=== PATIENT | female | born 1955 | race Caucasian/White ===

== ENCOUNTER 2017-01-09 09:06 | Emergency (ER) | payer BC ==
[2017-01-09] MEDS ORDERED: SODIUM CHLORIDE 0.9% 1,000 ML IV STA (09:32)
[2017-01-09] MEDS ORDERED: ONDANSETRON 4 MG/2 ML VIAL IVP STA (09:33)
--- NOTE | 2017-01-09 09:47 | ED ---
General Adult HPI - General Chief complaint: Syncope Stated complaint: Vomiting/Syncope Time Seen by Provider: 01/09/17 09:23 Source: patient, RN notes reviewed Mode of arrival: wheelchair Limitations: physical limitation - History of Present Illness Initial comments: This a 61-year-old female presents emergency Department with multiple complaints. Patient states she's been sick since Sunday states that she's had some cough congestion nausea vomiting diarrhea. Patient states went to urgent care told that she has sinus infection and some other type infection. She states she was given Cipro, prednisone and culture. Patient states symptoms are not improving. States it airbags to making her diarrhea worse. She states that she has 3-4 episodes of vomiting diarrhea throughout the day. She states today she was getting out of the shower felt very dizzy hot flush and states that she passed out. She states she remembers starting to fall and then she states she woke up on the ground. Patient states that she has no head or neck pain she states that she denies any chest pain or shortness breath at this time. She does complain of left leg and ankle pain. Patient states that she cannot bear weight because of pain. Patient denies any abdominal pain time she does occasionally have some cramping associated with her diarrhea. Denies any melena, hematochezia, hematemesis or coffee-ground emesis. - Related Data Home Medications Medication Instructions Recorded Confirmed Ciprofloxacin HCl [Cipro] 500 mg PO Q12HR 01/09/17 01/09/17 Levothyroxine Sodium [Synthroid] 125 mcg PO DAILY 01/09/17 01/09/17 predniSONE 10 mg PO DAILY 01/09/17 01/09/17 Previous Rx's Medication Instructions Recorded Ondansetron Odt [Zofran Odt] 4 mg PO Q8HR PRN #10 tab 01/09/17 Allergies Allergy/AdvReac Type Severity Reaction Status Date / Time Penicillins Allergy Anaphylaxis Verified 01/09/17 09:33 Review of Systems ROS Statement: Those systems with pertinent positive or pertinent negative responses have been documented in the HPI. ROS Other: All systems not noted in ROS Statement are negative. Past Medical History Past Medical History: Asthma Additional Past Medical History / Comment(s): THYROID History of Any Multi-Drug Resistant Organisms: None Reported Past Surgical History: Appendectomy, Hysterectomy Additional Past Surgical History / Comment(s): HAND SX X 2 Past Psychological History: No Psychological Hx Reported Smoking Status: Former smoker Past Alcohol Use History: None Reported Past Drug Use History: None Reported General Exam Limitations: physical limitation General appearance: alert, in no apparent distress Head exam: Present: atraumatic, normocephalic, normal inspection Eye exam: Present: normal appearance, PERRL, EOMI. Absent: scleral icterus, conjunctival injection, periorbital swelling ENT exam: Present: normal exam, normal oropharynx, mucous membranes moist, TM's normal bilaterally, normal external ear exam Neck exam: Present: normal inspection, full ROM. Absent: tenderness, meningismus, lymphadenopathy Respiratory exam: Present: normal lung sounds bilaterally. Absent: respiratory distress, wheezes, rales, rhonchi, stridor Cardiovascular Exam: Present: regular rate, normal rhythm, normal heart sounds. Absent: systolic murmur, diastolic murmur, rubs, gallop, clicks GI/Abdominal exam: Present: soft, normal bowel sounds. Absent: distended, tenderness, guarding, rebound, rigid Extremities exam: Present: other (Tenderness over the proximal tib-fib region on the left, tenderness the lateral malleolus of left ankle, mild swelling, neurovascular intact there is no foot tenderness) Back exam: Present: full ROM. Absent: tenderness Neurological exam: Present: alert, oriented X3, CN II-XII intact, reflexes normal. Absent: motor sensory deficit Skin exam: Present: warm, dry, intact, normal color. Absent: rash Course Vital Signs 01/09/17 01/09/17 09:14 10:40 Temperature 98.8 F Pulse Rate 101 H 71 Respiratory 20 18 Rate Blood Pressure 155/85 141/76 O2 Sat by Pulse 100 98 Oximetry EKG Findings - EKG Comments: EKG Findings:: EKG performed at 9:43 sinus rhythm with short ND rate of 83 ND interval 110 QRS duration 86 QT/ QTC 370/434 Procedures - Orthopedic Splinting/Casting Injury #1 Lower Extremity Injury Location: long leg Lower Extremity Immobilizer: posterior splint, synthetic pre-padded splint Other Orthopedic Equipment: crutches Medical Decision Making - Medical Decision Making 61-year-old female presented from for nausea vomiting diarrhea cough congestion not feeling well. Patient has been sick last few days. Patient's labwork essentially unremarkable. Patient didn't have syncopal episode from getting out of the shower likely vasovagal. Patient has no specific complaints other than left ankle and leg pain. Patient has a fibular fracture. Patient will be splinted and follow up with orthopedics. Patient denies medication advised to increase her fluid intake and follow-up with her PCP. Return parameters were discussed. - Lab Data Result diagrams: 01/09/17 10:00 01/09/17 10:00 Lab Results 01/09/17 01/09/17 01/09/17 Range/Units 10:00 10:00 10:00 WBC 5.8 (3.8-10.6) k/uL RBC 5.13 (3.80-5.40) m/uL Hgb 15.7 (11.4-16.0) gm/dL Hct 46.6 H (34.0-46.0) % MCV 90.8 (80.0-100.0) fL MCH 30.7 (25.0-35.0) pg MCHC 33.8 (31.0-37.0) g/dL RDW 13.1 (11.5-15.5) % Plt Count 208 (150-450) k/uL Neutrophils % 65 % Lymphocytes % 24 % Monocytes % 8 % Eosinophils % 1 % Basophils % 1 % Neutrophils # 3.7 (1.3-7.7) k/uL Lymphocytes # 1.4 (1.0-4.8) k/uL Monocytes # 0.4 (0-1.0) k/uL Eosinophils # 0.0 (0-0.7) k/uL Basophils # 0.0 (0-0.2) k/uL PT (9.0-12.0) sec INR (<1.2) APTT (22.0-30.0) sec Sodium 139 (137-145) mmol/L Potassium 3.9 (3.5-5.1) mmol/L Chloride 107 (98-107) mmol/L Carbon Dioxide 21 L (22-30) mmol/L Anion Gap 11 mmol/L BUN 13 (7-17) mg/dL Creatinine 0.72 (0.52-1.04) mg/dL Est GFR (MDRD) Af Amer >60 (>60 ml/min/1.73 sqM) Est GFR (MDRD) Non-Af >60 (>60 ml/min/1.73 sqM) Glucose 123 H (74-99) mg/dL Calcium 9.1 (8.4-10.2) mg/dL Magnesium 1.8 (1.6-2.3) mg/dL Total Bilirubin 0.4 (0.2-1.3) mg/dL AST 41 H (14-36) U/L ALT 48 (9-52) U/L Alkaline Phosphatase 61 (38-126) U/L Total Creatine Kinase 103 (30-135) U/L CK-MB (CK-2) 1.1 (0.0-2.4) ng/mL CK-MB (CK-2) Rel Index 1.1 Troponin I <0.012 (0.000-0.034) ng/mL Total Protein 7.0 (6.3-8.2) g/dL Albumin 4.2 (3.5-5.0) g/dL Amylase 93 (30-110) U/L Lipase 357 H (23-300) U/L Urine Color Urine Appearance (Clear) Urine pH (5.0-8.0) Ur Specific Morrow (1.001-1.035) Urine Protein (Negative) Urine Glucose (UA) (Negative) Urine Ketones (Negative) Urine Blood (Negative) Urine Nitrite (Negative) Urine Bilirubin (Negative) Urine Urobilinogen (<2.0) mg/dL Ur Leukocyte Esterase (Negative) Ur Squamous Epith Cells (0-4) /hpf Urine Bacteria (None) /hpf Urine Mucus (None) /hpf 01/09/17 01/09/17 Range/Units 10:00 10:15 WBC (3.8-10.6) k/uL RBC (3.80-5.40) m/uL Hgb (11.4-16.0) gm/dL Hct (34.0-46.0) % MCV (80.0-100.0) fL MCH (25.0-35.0) pg MCHC (31.0-37.0) g/dL RDW (11.5-15.5) % Plt Count (150-450) k/uL Neutrophils % % Lymphocytes % % Monocytes % % Eosinophils % % Basophils % % Neutrophils # (1.3-7.7) k/uL Lymphocytes # (1.0-4.8) k/uL Monocytes # (0-1.0) k/uL Eosinophils # (0-0.7) k/uL Basophils # (0-0.2) k/uL PT 10.7 (9.0-12.0) sec INR 1.1 (<1.2) APTT 24.8 (22.0-30.0) sec Sodium (137-145) mmol/L Potassium (3.5-5.1) mmol/L Chloride (98-107) mmol/L Carbon Dioxide (22-30) mmol/L Anion Gap mmol/L BUN (7-17) mg/dL Creatinine (0.52-1.04) mg/dL Est GFR (MDRD) Af Amer (>60 ml/min/1.73 sqM) Est GFR (MDRD) Non-Af (>60 ml/min/1.73 sqM) Glucose (74-99) mg/dL Calcium (8.4-10.2) mg/dL Magnesium (1.6-2.3) mg/dL Total Bilirubin (0.2-1.3) mg/dL AST (14-36) U/L ALT (9-52) U/L Alkaline Phosphatase (38-126) U/L Total Creatine Kinase (30-135) U/L CK-MB (CK-2) (0.0-2.4) ng/mL CK-MB (CK-2) Rel Index Troponin I (0.000-0.034) ng/mL Total Protein (6.3-8.2) g/dL Albumin (3.5-5.0) g/dL Amylase (30-110) U/L Lipase (23-300) U/L Urine Color Yellow Urine Appearance Cloudy H (Clear) Urine pH 6.5 (5.0-8.0) Ur Specific Morrow 1.020 (1.001-1.035) Urine Protein 1+ H (Negative) Urine Glucose (UA) Negative (Negative) Urine Ketones Negative (Negative) Urine Blood Negative (Negative) Urine Nitrite Negative (Negative) Urine Bilirubin Negative (Negative) Urine Urobilinogen <2.0 (<2.0) mg/dL Ur Leukocyte Esterase Negative (Negative) Ur Squamous Epith Cells 5 H (0-4) /hpf Urine Bacteria Rare H (None) /hpf Urine Mucus Rare H (None) /hpf Disposition Clinical Impression: Left fibular fracture, Vasovagal syncope, Nausea vomiting and diarrhea, URI ( upper respiratory infection) Disposition: HOME SELF-CARE Condition: Stable Instructions: Acute Nausea and Vomiting (ED), Acute Diarrhea (ED) Additional Instructions: Please return to the Emergency Department if symptoms worsen or any other concerns. Prescriptions: Ondansetron Odt [Zofran Odt] 4 mg PO Q8HR PRN #10 tab PRN Reason: Nausea Referrals: Rios Arnold MD [Primary Care Provider] - 1-2 days Junior Medellin MD [STAFF PHYSICIAN] - 1-2 days Time of Disposition: 11:22
[2017-01-09 10:22] LABS: Basophils % (A) 1 %; CH 31.7; CHCM 35.1; Eosinophils % (A) 1 %; HCT 46.6 % (34.0-46.0); HDW 2.34; HGB 15.7 gm/dL (11.4-16.0); Luc # (Auto) 0.16; Luc % (Auto) 3; Lymphocytes # (A) 1.4 k/uL (1.0-4.8); Lymphocytes % (A) 24 %; MCH 30.7 pg (25.0-35.0); MCHC 33.8 g/dL (31.0-37.0); MCV 90.8 fL (80.0-100.0); Mean Platelet Volume 7.4; Monocytes # (A) 0.4 k/uL (0-1.0); Monocytes % (A) 8 %; Neutrophils # (A) 3.7 k/uL (1.3-7.7); Neutrophils % (A) 65 %; RBC 5.13 m/uL (3.80-5.40); RDW 13.1 % (11.5-15.5); WBC 5.8 k/uL (3.8-10.6); WBC (Perox) 5.39
[2017-01-09 10:23] LABS: Appearance,Urine Cloudy (Clear); Bacteria,Urine Rare /hpf; Bilirubin,Urine Negative (Negative); Glucose,Urine (UA) Negative (Negative); Ketones,Urine Negative (Negative); Leukocyte Esterase,Urine Negative (Negative); Mucus,Urine Rare /hpf; Nitrite,Urine Negative (Negative); PH, Urine 6.5 (5.0-8.0); Particle Count 4950; Protein,Urine 1+ (Negative); Squamous Epithelial Cell,Urine 5 /hpf (0-4); UA Billing (MACRO vs. MICRO) MICRO; Urobilinogen,Urine <2.0 mg/dL (<2.0)
[2017-01-09 10:25] LABS: INR 1.1 (<1.2); Prothrombin Time 10.7 sec (9.0-12.0)
[2017-01-09 10:26] LABS: ALT 48 U/L (9-52); AST 41 U/L (14-36); Alkaline Phosphatase 61 U/L (38-126); Amylase 93 U/L (30-110); Anion Gap 11 mmol/L; Blood Urea Nitrogen 13 mg/dL (7-17); Calcium 9.1 mg/dL (8.4-10.2); Carbon Dioxide 21 mmol/L (22-30); Chloride 107 mmol/L (98-107); Glucose 123 mg/dL (74-99); Magnesium 1.8 mg/dL (1.6-2.3); Non-African American GFR(MDRD) >60 (>60 ml/min/1.73 sqM); Partial Thromboplastin Time 24.8 sec (22.0-30.0); Potassium 3.9 mmol/L (3.5-5.1); Sodium 139 mmol/L (137-145); Total Bilirubin 0.4 mg/dL (0.2-1.3)
--- NOTE | 2017-01-09 10:37 | XR ---
EXAMINATION TYPE: XR chest 2V, XR tibia fibula 2 views LT, XR ankle complete 3 views LT DATE OF EXAM: 01/09/2017 COMPARISON: None HISTORY: 61-year-old female with syncope and unable to bear weight on the left leg FINDINGS: CHEST: The cardiomediastinal silhouette, aorta, and pulmonary vasculature are within normal limits. Lungs an d pleural spaces are clear. TIBIA/FIBULA AND ANKLE: Sagittal lucency seen along the medial cortex of the fibular neck only on the frontal view. Otherwise , no acute fracture or dislocation is seen. Ankle mortise appears congruent with preservation of the distal tibiofibular overlap. Anterior tibiotalar joint effusion is noted. COMBINED IMPRESSION: 1. Chest: No acute cardiopulmonary process. 2. Tibia/fibula: Unable to exclude a subtle nondisplaced fracture of the fibular neck. Correlate as t o the mechanism of injury i.e. direct impact to the proximal leg or twisting injury at the ankle. 3. Ankle: Joint effusion but without acute osseous abnormality seen. Again, correlate as to the mecha nism of injury to exclude the possibility of underlying ligamentous injury.
[2017-01-09 10:41] VITALS: RESP 18
[2017-01-09 10:58] LABS: Creatine Kinase 103 U/L (30-135)
[2017-01-09 11:09] LABS: Creatine Kinase MB 1.1 ng/mL (0.0-2.4); Troponin I <0.012 ng/mL (0.000-0.034)
[2017-01-09 12:08] VITALS: BP 130/83; PULSE 77; TEMP 98.9
== END 2017-01-09 12:08 | disposition home or self-care (01) ==
LOC: EC 09:06
DX: S82.402A Unspecified fracture of shaft of left fibula, initial encounter for closed fracture (principal); R55 Syncope and collapse; R11.2 Nausea with vomiting, unspecified; R19.7 Diarrhea, unspecified; J06.9 Acute upper respiratory infection, unspecified; Z87.891 Personal history of nicotine dependence; Z79.52 Long term (current) use of systemic steroids; Z79.899 Other long term (current) drug therapy; Z88.0 Allergy status to penicillin; Z90.710 Acquired absence of both cervix and uterus; W19.XXXA Unspecified fall, initial encounter
CPT/HCPCS: 36415; 93005; 80053; 82150; 82550; 82553; 83690; 83735; 84484; 85025; 85610; 85730; 81001; 71020; 73590; 73610; 99284; 29505; 96374; 96361 ×2; J2405

== ENCOUNTER → 2017-09-18 | Outpatient (CLI) | payer BC ==
--- NOTE | 2017-09-18 17:19 | BD ---
EXAMINATION TYPE: Axial Bone Density DATE OF EXAM: 09/18/2017 COMPARISON: NONE CLINICAL HISTORY: 61 YR OLD FEMALE.....ICD-10 CODE: Z78.0 ASYMPTOMATIC MENOPAUSAL STATE Height: 60.2 Weight: 137 FRAX RISK QUESTIONS: History of Fracture in Adulthood: YES Secondary Osteoporosis: YES 3. Menopause before 45: YES RISK FACTORS HISTORY OF: HX OF TIB FIB BREAK LAST YR AND PRIOR 5 YRS History of Wrist Fracture: LT WRIST YOUNG ADULT Active: YES Diet low in dairy products/other sources of calcium: NO Postmenopausal woman: PARTIAL HYST AT AGE 39 MEDICATIONS: Prednisone or other steroids: ON AND OFF FOR URI Thyroid Medications: YES, SYNTHROID, SINCE AGE 34 Additional Medications: CALCIUM AND VIT D, Additional History: NOTHING TO NOTE EXAM MEASUREMENTS: Bone mineral densitometry was performed using the [employer] System. Bone mineral density as measured about the Lumbar spine is: ----- L1-L4(G/cm2): 1.077 T Score Values are as follows: ----- L1: -1.3 ----- L2: -0.9 ----- L3: -0.9 ----- L4: -1.2 ----- L1-L4: -1.0 Bone mineral density FIRST BONE DENSITY TEST.....BASELINE STUDY Bone mineral density about the R hip (g/cm2): 0.916 Bone mineral density about the L hip (g/cm2): 0.916 T Score values are as follows: -----R Neck: -1.3 -----L Neck: -1.4 -----R Total: -0.7 -----L Total: -0.7 Bone mineral density BASELINE STUDY FRAX%s: THERE IS 13.4% CHANCE OF A MAJOR OSTEOPOROTIC FX AND A 1.1% FOR HIP FX.....PROBABILITY OF FX IN 10 YRS TIME IMPRESSION: Osteopenia (T Score between -2.5 and -1). There is slightly increased risk of fracture and the patient may be considered for treatment. Re-Screen 2-5 years. NOTE: T-SCORE=SD OF THE YOUNG ADULT MEAN.
--- NOTE | 2017-09-21 09:21 | MM ---
Reason for exam: screening (asymptomatic). History: Patient is postmenopausal and had first child at age 37. Family history of breast cancer in 2 maternal cousins. Physical Findings: A clinical breast exam by your physician is recommended on an annual basis and results should be correlated with mammographic findings. MG Screening Mammo w CAD Bilateral CC and MLO view(s) were taken. Prior study comparison: November 06, 2008, mammogram, performed at [facility]. The breast tissue is heterogeneously dense. This may lower the sensitivity of mammography. No suspicious abnormality. No significant changes when compared with prior studies. ASSESSMENT: Negative, BI-RAD 1 RECOMMENDATION: Routine screening mammogram of both breasts in 1 year.
== END | disposition home or self-care (01) ==
LOC: RADMAMWWP 10:12
PROVIDERS: ATTEND Family Medicine
DX: Z12.31 Encounter for screening mammogram for malignant neoplasm of breast (principal); M85.80 Other specified disorders of bone density and structure, unspecified site; Z78.0 Asymptomatic menopausal state
CPT/HCPCS: 77067; 77080

== ENCOUNTER 2017-09-28 13:27 | Day surgery (SDC) | payer BC ==
[2017-09-26 10:40] VITALS: BMI 25.9
[~2017-09-28 13:27] MED LIST: LACTATED RINGERS 1,000 ML IV SCH
[2017-09-28 14:12] VITALS: TEMP 98
[2017-09-28] MEDS ORDERED: LIDOCAINE 1% 20 ML VIAL (10MG/ML) FOR IV START INTRADERMA ONE (14:17)
[2017-09-28] MEDS ORDERED: ONDANSETRON 4 MG/2 ML VIAL IVP ONE (14:31)
[2017-09-28] MEDS ORDERED: PROPOFOL 10 MG/ML 20 ML VIAL IV ONE (15:19)
[2017-09-28] MEDS ORDERED: GLUCAGON 1 MG/ML VIAL ONE (15:19)
--- NOTE | 2017-09-28 15:27 | P.GSHP ---
History of Present Illness H&P Date: 09/28/17 Chief Complaint: Screening colonoscopy This is a 61-year-old female referred from Dr. Arnold. Patient is today for screening colonoscopy. She denies any significant GI complaints. Past Medical History Past Medical History: Asthma, Thyroid Disorder Additional Past Medical History / Comment(s): THYROID, L broken leg in 2016 from falling. History of Any Multi-Drug Resistant Organisms: None Reported Past Surgical History: Appendectomy, Hysterectomy Additional Past Surgical History / Comment(s): HAND SX X 2, prior colonoscopy. Past Anesthesia/Blood Transfusion Reactions: Postoperative Nausea & Vomiting ( PONV) Additional Past Anesthesia/Blood Transfusion Reaction / Comment(s): Difficult waking up. Smoking Status: Former smoker - Past Family History Mother Family Medical History: No Reported History Father Family Medical History: CVA/TIA Medications and Allergies Home Medications Medication Instructions Recorded Confirmed Type Levothyroxine Sodium [Synthroid] 112 mcg PO DAILY 01/09/17 09/28/17 History Budesonide/Formoterol Fumarate 1 puff INHALATION DAILY PRN 09/26/17 09/28/17 History [Symbicort 80-4.5 Mcg Inhaler] Multivitamins, Thera [Multivitamin 1 tab PO DAILY 09/26/17 09/28/17 History (formulary)] Vitamin B Complex 1 each PO DAILY 09/26/17 09/28/17 History Allergies Allergy/AdvReac Type Severity Reaction Status Date / Time Penicillins Allergy Anaphylaxis Verified 09/28/17 14:12 Surgical - Exam Vital Signs Temp Pulse Resp BP Pulse Ox 98.0 F 81 16 128/93 97 09/28/17 14:11 09/28/17 14:11 09/28/17 14:11 09/28/17 14:11 09/28/17 14:11 - General well developed, no distress - Eyes PERRL - ENT normal pinna - Neck no masses - Respiratory normal expansion - Cardiovascular Rhythm: regular - Abdomen Abdomen: soft, non tender Assessment and Plan Assessment: We'll perform screening colonoscopy.
[2017-09-28] MEDS ORDERED: IV FLUID CONTINUATION 1,000 ML IV ONE (15:38)
--- NOTE | 2017-09-28 15:42 | P.OP ---
Date of Procedure: 09/28/17 Preoperative Diagnosis: Screening colonoscopy Postoperative Diagnosis: Normal colonoscopy Procedure(s) Performed: Colonoscopy Anesthesia: FARIBA Surgeon: Juliano Xavier Pathology: none sent Condition: stable Disposition: PACU Description of Procedure: PROCEDURE: The patient was placed on the endoscopy table in the lateral position. Digital rectal examination was performed which revealed no abnormalities. Flexible colonoscope was then placed in the patient's anus and passed throughout the entire colon. The ileocecal valve was visualized. The cecum, ascending, transverse, descending and sigmoid colon were normal. The rectum was normal as well. There were no masses, polyps or diverticula noted in the entire colon. SUMMARY OF FINDINGS: Normal colonoscopy.
[2017-09-28 15:59] VITALS: BP 150/90; PULSE 64; RESP 18
== END 2017-09-28 16:14 | disposition home or self-care (01) ==
LOC: ORWHC2ENDO 13:27
PROVIDERS: ATTEND Surgery
DX: Z12.11 Encounter for screening for malignant neoplasm of colon (principal); J44.9 Chronic obstructive pulmonary disease, unspecified; E07.9 Disorder of thyroid, unspecified; Z88.0 Allergy status to penicillin; Z79.890 Hormone replacement therapy; Z79.899 Other long term (current) drug therapy; Z87.891 Personal history of nicotine dependence; Z90.710 Acquired absence of both cervix and uterus
CPT/HCPCS: G0121; J1610; J2405; J2704

== ENCOUNTER → 2017-11-21 | Outpatient (CLI) | payer BC ==
--- NOTE | 2017-11-21 12:16 | XR ---
EXAMINATION TYPE: XR shoulder complete RT DATE OF EXAM: 11/21/2017 COMPARISON: NONE HISTORY: 61-year-old female with right shoulder pain for 4 weeks TECHNIQUE: 3 views FINDINGS: Mild degenerative spurring and capsular distention at the acromioclavicular joint. Subacromial space is preserved. No tendinous or bursal calcifications. No acute fracture, subluxation, or dislocation. IMPRESSION: Mild degenerative change at the AC joint. No acute osseous abnormality seen.
== END ==
LOC: RADXRMAIN 10:25
PROVIDERS: ATTEND Family Medicine
DX: M19.011 Primary osteoarthritis, right shoulder (principal)

== ENCOUNTER → 2018-10-01 | Outpatient (CLI) | payer BC ==
--- NOTE | 2018-10-02 14:10 | MM ---
Reason for exam: screening (asymptomatic). Last mammogram was performed 1 year ago. History: Patient is postmenopausal and had first child at age 37. Family history of breast cancer in 2 maternal cousins. Took hormonal contraceptives for 15 years. Physical Findings: A clinical breast exam by your physician is recommended on an annual basis and results should be correlated with mammographic findings. MG Screening Mammo w CAD Bilateral CC and MLO view(s) were taken. Prior study comparison: September 18, 2017, bilateral MG screening mammo w CAD. November 06, 2008, mammogram, performed at [facility]. The breast tissue is heterogeneously dense. This may lower the sensitivity of mammography. No suspicious abnormality. No significant changes when compared with prior studies. ASSESSMENT: Negative, BI-RAD 1 RECOMMENDATION: Routine screening mammogram of both breasts in 1 year.
== END | disposition home or self-care (01) ==
LOC: RADMAMWWP 07:48
PROVIDERS: ATTEND Family Medicine
DX: Z12.31 Encounter for screening mammogram for malignant neoplasm of breast (principal)
CPT/HCPCS: 77067

== ENCOUNTER → 2020-03-29 | Outpatient (CLI) | payer BC ==
--- NOTE | 2020-03-29 08:43 | US ---
EXAMINATION TYPE: US extremity nonvasc mass LT DATE OF EXAM: 03/29/2020 COMPARISON: NONE CLINICAL HISTORY: 64-year-old female Antecubital space; R22.9 Left localized mass. TECHNIQUE: Targeted scanning at the patient's palpable site along the left antecubital fossa. FINDINGS: Periodontal Assistant notes: At left antecubital space is a palpable hyperechoic non-vascular mass measuring 4 .4 x 1.0 x 2.8cm. On the provided images, this appears to involve the deep half of one of the proximal forearm muscles, possibly the pronator teres. Further MRI evaluation is recommended. IMPRESSION: Echogenic lesion involving the deep half of one of the upper medial, volar forearm muscles in the reg ion of the antecubital fossa area. Possibly involving the pronator teres. A fatty tumor (such as lipo ma or liposarcoma) and hemangioma are favored differential considerations. Recommend MRI without and with contrast to further evaluate.
== END | disposition home or self-care (01) ==
LOC: RADUSWWP 07:29
PROVIDERS: ATTEND Nurse Practitioner
DX: R93.7 Abnormal findings on diagnostic imaging of other parts of musculoskeletal system (principal)

== ENCOUNTER → 2020-04-26 | Outpatient (CLI) | payer BC ==
--- NOTE | 2020-04-27 17:05 | MR ---
MR left elbow with and without contrast HISTORY: R 22.32 Multiplanar multisequence and postcontrast images obtained through the left elbow following 6.5 cc Ga davist IV There are no plain films for correlation There is a marker overlying the site of patient's palpable abnormality. Underlying muscle signal, bon e marrow signal is normal. Some increased signal at the insertion of the biceps tendon and T2-weighte d sequences is mild, there may be some strain, partial tear at this level. Increased signal is also p resent at the level of the common flexor tendon origin suggesting some mild inflammatory change, axia l image 18 of series 401. There is no abnormal enhancement. No evident mass at the site of patient's marker. There is no fractu re or dislocation. Minimal joint fluid is present. Articular cartilage signal is maintained. IMPRESSION: There may be strain or partial tear at the tendon insertion at the proximal radius the bi ceps tendon and additional findings above. No evident mass.
== END | disposition home or self-care (01) ==
LOC: RADMRIMAIN 08:04
PROVIDERS: ATTEND Family Medicine
DX: R22.32 Localized swelling, mass and lump, left upper limb (principal)
CPT/HCPCS: 73223; A9585

== ENCOUNTER → 2020-05-21 | Outpatient (CLI) | payer BC ==
--- NOTE | 2020-05-24 10:43 | MM ---
Reason for exam: screening (asymptomatic). Last mammogram was performed 1 year and 8 months ago. History: Patient is postmenopausal and had first child at age 37. Family history of breast cancer in 2 maternal cousins. Took hormonal contraceptives for 15 years. Physical Findings: A clinical breast exam by your physician is recommended on an annual basis and results should be correlated with mammographic findings. MG Screening Mammo w CAD Bilateral CC and MLO view(s) were taken. Prior study comparison: October 01, 2018, bilateral MG screening mammo w CAD. September 18, 2017, bilateral MG screening mammo w CAD. There are scattered fibroglandular densities. There is no discrete abnormality. No significant changes when compared with prior studies. ASSESSMENT: Negative, BI-RAD 1 RECOMMENDATION: Routine screening mammogram of both breasts in 1 year.
== END | disposition home or self-care (01) ==
LOC: RADMAMWWP 10:07
PROVIDERS: ATTEND Family Medicine
DX: Z12.31 Encounter for screening mammogram for malignant neoplasm of breast (principal)
CPT/HCPCS: 77067

== ENCOUNTER 2020-08-12 12:10 | Inpatient (IN) | payer BC ==
[2020-08-12] MEDS ORDERED: SODIUM CHLORIDE 0.9% 500 ML 500 ML IV STA (12:43)
--- NOTE | 2020-08-12 12:52 | ED ---
General Adult HPI - General Chief complaint: Syncope Stated complaint: Blood in stool/passing out Time Seen by Provider: 08/12/20 12:20 Source: patient, RN notes reviewed, old records reviewed Mode of arrival: wheelchair Limitations: no limitations - History of Present Illness Initial comments: This is a 64-year-old female presents emergency room stating she was at work and she felt lightheaded and felt the ground but did not pass out but felt like she was going to. Patient denies any chest pain palpitations difficulty breathing shortness of breath. Patient states she felt extremely weak it's very hot where she works and she's not sure she drinks fluid. Patient states she went home she started having blood per rectum at least 3 or 4 times since 4 AM this morning and at that point time she decided to come the emergency department. Patient s tates she had a little cramping in the left side of her abdomen. Patient denies any diarrhea. Patient states she's had colitis in the past. - Related Data Home Medications Medication Instructions Recorded Confirmed Vitamin B Complex 1 cap PO DAILY@209909/26/17 08/12/20 Levothyroxine Sodium [Euthyrox] 75 mcg PO DAILY@209908/12/20 08/12/20 Meloxicam [Mobic] 7.5 mg PO BID PRN 08/12/20 08/12/20 Multivit-Min/FA/Lycopen/Lutein 1 tab PO DAILY@209908/12/20 08/12/20 [Centrum Silver Tablet] Allergies Allergy/AdvReac Type Severity Reaction Status Date / Time Penicillins Allergy Anaphylaxis Verified 08/12/20 14:04 Review of Systems ROS Statement: Those systems with pertinent positive or pertinent negative responses have been documented in the HPI. ROS Other: All systems not noted in ROS Statement are negative. Past Medical History Past Medical History: Asthma, Thyroid Disorder Additional Past Medical History / Comment(s): THYROID History of Any Multi-Drug Resistant Organisms: None Reported Past Surgical History: Hysterectomy, Orthopedic Surgery Additional Past Surgical History / Comment(s): HAND SX X 2 Past Anesthesia/Blood Transfusion Reactions: Postoperative Nausea & Vomiting (PONV) Additional Past Anesthesia/Blood Transfusion Reaction / Comment(s): Difficult waking up. Past Psychological History: No Psychological Hx Reported Smoking Status: Never smoker Past Alcohol Use History: Occasional Past Drug Use History: None Reported - Past Family History Mother Family Medical History: No Reported History Father Family Medical History: CVA/TIA General Exam - General Exam Comments Initial Comments: GENERAL: Patient is well-developed and well-nourished. Patient is nontoxic and well-hydrated and is in mild distress. ENT: Neck is soft and supple. No significant lymphadenopathy is noted. Oropharynx is clear. Moist mucous membranes. Neck has full range of motion without eliciting any pain. EYES: The sclera were anicteric and conjunctiva were pink and moist. Extraocular movements were intact and pupils were equal round and reactive to light. Eyelids were unremarkable. PULMONARY: Unlabored respirations. Good breath sounds bilaterally. No audible rales rhonchi or wheezing was noted. CARDIOVASCULAR: There is a regular rate and rhythm without any murmurs gallops or rubs. ABDOMEN: Soft and nontender with normal bowel sounds. SKIN: Skin is clear with no lesions or rashes and otherwise unremarkable. NEUROLOGIC: Patient is alert and oriented x3. Cranial nerves II through XII are grossly intact. Motor and sensory are also intact. Normal speech, volume and content. Symmetrical smile. MUSCULOSKELETAL: Normal extremities with adequate strength and full range of motion. No lower extremity swelling or edema. No calf tenderness. LYMPHATICS: No significant lymphadenopathy is noted PSYCHIATRIC: Normal psychiatric evaluation. Limitations: no limitations Course Vital Signs 08/12/20 08/12/20 12:23 12:56 Temperature 97.9 F Pulse Rate 93 82 Respiratory 20 16 Rate Blood Pressure 161/88 126/86 O2 Sat by Pulse 100 99 Oximetry Medical Decision Making - Medical Decision Making EKG shows sinus rhythm with occasional PVC at 80 bpm SC interval 122 QRS is 90 QT interval 396 QTC is 456. EKG shows no ST segment elevation or depression. Patient's guaiac was positive. She continue to have bloody stools. I spoke with Dr. Clayton Arnold agreed to admit the patient minute the patient consult to GI. - Lab Data Result diagrams: 08/12/20 12:55 08/12/20 12:55 Lab Results 08/12/20 08/12/20 08/12/20 Range/Units 12:55 12:55 12:55 WBC 13.1 H (3.8-10.6) k/uL RBC 4.88 (3.80-5.40) m/uL Hgb 15.0 (11.4-16.0) gm/dL Hct 46.1 H (34.0-46.0) % MCV 94.5 (80.0-100.0) fL MCH 30.8 (25.0-35.0) pg MCHC 32.6 (31.0-37.0) g/dL RDW 13.8 (11.5-15.5) % Plt Count 352 (150-450) k/uL MPV 7.3 Neutrophils % 79 % Lymphocytes % 16 % Monocytes % 3 % Eosinophils % 0 % Basophils % 1 % Neutrophils # 10.3 H (1.3-7.7) k/uL Lymphocytes # 2.1 (1.0-4.8) k/uL Monocytes # 0.4 (0-1.0) k/uL Eosinophils # 0.1 (0-0.7) k/uL Basophils # 0.1 (0-0.2) k/uL PT 10.3 (9.0-12.0) sec INR 1.0 (<1.2) APTT 23.5 (22.0-30.0) sec Sodium (137-145) mmol/L Potassium (3.5-5.1) mmol/L Chloride (98-107) mmol/L Carbon Dioxide (22-30) mmol/L Anion Gap mmol/L BUN (7-17) mg/dL Creatinine (0.52-1.04) mg/dL Est GFR (CKD-EPI)AfAm (>60 ml/min/1.73 sqM) Est GFR (CKD-EPI)NonAf (>60 ml/min/1.73 sqM) Glucose (74-99) mg/dL Calcium (8.4-10.2) mg/dL Total Bilirubin (0.2-1.3) mg/dL AST (14-36) U/L ALT (4-34) U/L Alkaline Phosphatase (38-126) U/L Troponin I (0.000-0.034) ng/mL Total Protein (6.3-8.2) g/dL Albumin (3.5-5.0) g/dL Stool Occult Blood Positive H (Negative) Blood Type Blood Type Recheck Bld Type Recheck Status Antibody Screen Spec Expiration Date 06/24/21 06/24/21 06/24/21 Range/Units 12:55 12:55 12:55 WBC (3.8-10.6) k/uL RBC (3.80-5.40) m/uL Hgb (11.4-16.0) gm/dL Hct (34.0-46.0) % MCV (80.0-100.0) fL MCH (25.0-35.0) pg MCHC (31.0-37.0) g/dL RDW (11.5-15.5) % Plt Count (150-450) k/uL MPV Neutrophils % % Lymphocytes % % Monocytes % % Eosinophils % % Basophils % % Neutrophils # (1.3-7.7) k/uL Lymphocytes # (1.0-4.8) k/uL Monocytes # (0-1.0) k/uL Eosinophils # (0-0.7) k/uL Basophils # (0-0.2) k/uL PT (9.0-12.0) sec INR (<1.2) APTT (22.0-30.0) sec Sodium 138 (137-145) mmol/L Potassium 4.5 (3.5-5.1) mmol/L Chloride 102 (98-107) mmol/L Carbon Dioxide 28 (22-30) mmol/L Anion Gap 8 mmol/L BUN 13 (7-17) mg/dL Creatinine 0.77 (0.52-1.04) mg/dL Est GFR (CKD-EPI)AfAm >90 (>60 ml/min/1.73 sqM) Est GFR (CKD-EPI)NonAf 83 (>60 ml/min/1.73 sqM) Glucose 110 H (74-99) mg/dL Calcium 9.6 (8.4-10.2) mg/dL Total Bilirubin 1.0 (0.2-1.3) mg/dL AST 32 (14-36) U/L ALT 20 (4-34) U/L Alkaline Phosphatase 75 (38-126) U/L Troponin I <0.012 (0.000-0.034) ng/mL Total Protein 7.3 (6.3-8.2) g/dL Albumin 4.8 (3.5-5.0) g/dL Stool Occult Blood (Negative) Blood Type O Positive Blood Type Recheck No Previous Record Bld Type Recheck Status CABO Indicated Antibody Screen NEGATIVE Spec Expiration Date 08/15/20202354 Disposition Clinical Impression: GI bleed, Near syncope Disposition: ADMITTED IP TO THIS HOSP Referrals: Rios Arnold MD [Primary Care Provider] - 1-2 days Time of Disposition: 14:24
[2020-08-12 13:23] LABS: Basophils # (A) 0.1 k/uL (0-0.2); Basophils % (A) 1 %; Eosinophils # (A) 0.1 k/uL (0-0.7); Eosinophils % (A) 0 %; HCT 46.1 % (34.0-46.0); Lymphocytes # (A) 2.1 k/uL (1.0-4.8); Lymphocytes % (A) 16 %; MCH 30.8 pg (25.0-35.0); MCHC 32.6 g/dL (31.0-37.0); MCV 94.5 fL (80.0-100.0); Mean Platelet Volume 7.3; Monocytes # (A) 0.4 k/uL (0-1.0); Monocytes % (A) 3 %; Neutrophils # (A) 10.3 k/uL (1.3-7.7); Neutrophils % (A) 79 %; Platelet Count 352 k/uL (150-450); RBC 4.88 m/uL (3.80-5.40); RDW 13.8 % (11.5-15.5); WBC 13.1 k/uL (3.8-10.6)
[2020-08-12 13:31] LABS: Partial Thromboplastin Time 23.5 sec (22.0-30.0); Prothrombin Time 10.3 sec (9.0-12.0)
[2020-08-12 13:32] LABS: ALT 20 U/L (4-34); AST 32 U/L (14-36); African American GFR (CKD) >90 (>60 ml/min/1.73 sqM); Albumin 4.8 g/dL (3.5-5.0); Alkaline Phosphatase 75 U/L (38-126); Anion Gap 8 mmol/L; Blood Urea Nitrogen 13 mg/dL (7-17); Calcium 9.6 mg/dL (8.4-10.2); Carbon Dioxide 28 mmol/L (22-30); Chloride 102 mmol/L (98-107); Glucose 110 mg/dL (74-99); Non-African American GFR(CKD) 83 (>60 ml/min/1.73 sqM); Potassium 4.5 mmol/L (3.5-5.1); Sodium 138 mmol/L (137-145); Total Protein 7.3 g/dL (6.3-8.2)
--- NOTE | 2020-08-12 14:02 | XR ---
EXAMINATION TYPE: XR chest 2V DATE OF EXAM: 08/12/2020 COMPARISON: 01/09/2017 HISTORY: Pain TECHNIQUE: Frontal and lateral views of the chest are obtained. FINDINGS: There is no focal air space opacity, pleural effusion, or pneumothorax seen. The cardiac silhouette size is within normal limits. The osseous structures are intact. IMPRESSION: No acute cardiopulmonary process.
[2020-08-12] MEDS ORDERED: SODIUM CHLORIDE 0.9% 1,000 ML IV ONE (14:33)
[2020-08-12] MEDS ORDERED: ACETAMINOPHEN TAB 325 MG TAB PO STA (15:17)
--- NOTE | 2020-08-12 15:58 | US ---
EXAMINATION TYPE: US carotid duplex BILAT DATE OF EXAM: 08/12/2020 COMPARISON: NONE CLINICAL HISTORY: near syncope. Syncope EXAM MEASUREMENTS: RIGHT: Peak Systolic Velocity (PSV) cm/sec ----- Right CCA: 50.38 ----- Right ICA: 56.6 ----- Right ECA: 39.1 ICA/CCA ratio: 1.1 RIGHT: End Diastole cm/sec ----- Right CCA: 24.6 ----- Right ICA: 27.5 ----- Right ECA: 11.5 LEFT: Peak Systolic Velocity (PSV) cm/sec ----- Left CCA: 53.6 ----- Left ICA: 65.3 ----- Left ECA: 46.4 ICA/CCA ratio: 1.2 LEFT: End Diastole cm/sec ----- Left CCA: 21.7 ----- Left ICA: 31.8 ----- Left ECA: 11.5 VERTEBRALS (direction of flow): Right Vertebral: Antegrade Left Vertebral: Antegrade Rhythm: Normal No significant stenosis seen IMPRESSION: No sonographic evidence for hemodynamically significant stenosis in the carotid arteries. Tardus parvus waveform bilaterally may indicate proximal stenosis. Criteria for Assigning % of Stenosis / Diameter reduction (Estimation based on the indirect measurements of the internal carotid artery velocities (ICA PSV). 1. Normal (no stenosis)=ICA PSV < 125 cm/s: ratio < 2.0: ICA EDV<40 cm/s. 2. Less than 50% stenosis=ICA PSV < 125 cm/s: ratio < 2.0: ICA EDV<40 cm/s. 3. 50 to 69% stenosis=ICA PSV of 125 to 230 cm/s: ration 2.0 ? 4.0: ICA EDV 40-100 cm/s. 4. Greater than 70% stenosis to near occlusion= ICA PSV > 230 cm/s: ratio > 4.0: ICA EDV > 100 cm/s. 5. Near occlusion= ICA PSV velocities may be low or undetectable: variable ratio and ICA EDV. 6. Total occlusion=unable to detect flow.
[2020-08-12] MEDS ORDERED: CYCLOBENZAPRINE 5 MG TAB PO PRN (20:01)
[2020-08-12] MEDS ORDERED: CALCIUM CARBONATE 500 MG CHEWABLE PO PRN (20:06)
[2020-08-12] MEDS: MULTIVITAMINS, THERA 1 EACH TAB PO SCH (20:39)
[2020-08-12] MEDS: FOLIC ACID-VIT B COMPLEX-VIT C 1 CAP PO SCH (20:39)
[2020-08-12] MEDS: LEVOTHYROXINE 75 MCG TAB PO SCH (20:39)
[2020-08-12] MEDS: PANTOPRAZOLE 40 MG/10 ML VIAL IVP SCH (20:40)
[2020-08-12] MEDS ORDERED: ONDANSETRON 4 MG/2 ML VIAL IVP PRN (20:57)
[2020-08-13 00:13] LABS: Basophils # (A) 0.1 k/uL (0-0.2); Basophils % (A) 1 %; Eosinophils # (A) 0.2 k/uL (0-0.7); Eosinophils % (A) 1 %; HCT 42.2 % (34.0-46.0); HGB 13.9 gm/dL (11.4-16.0); Lymphocytes % (A) 17 %; MCH 31.4 pg (25.0-35.0); MCHC 32.8 g/dL (31.0-37.0); MCV 95.7 fL (80.0-100.0); Mean Platelet Volume 7.4; Monocytes # (A) 0.5 k/uL (0-1.0); Monocytes % (A) 4 %; Neutrophils # (A) 9.1 k/uL (1.3-7.7); Neutrophils % (A) 75 %; Platelet Count 312 k/uL (150-450); RBC 4.41 m/uL (3.80-5.40); RDW 13.9 % (11.5-15.5); WBC 12.1 k/uL (3.8-10.6)
[2020-08-13] MEDS ORDERED: HEPARIN SODIUM,PORCINE 2,500 UNIT in SODIUM CHLORIDE 0.9% 250 ML IRRIGATION PRN (07:00)
[2020-08-13] MEDS ORDERED: HEPARIN SODIUM,PORCINE 10,000 UNIT in SODIUM CHLORIDE 0.9% 1,000 ML IRRIGATION PRN (07:00)
--- NOTE | 2020-08-13 07:53 | P.HPIM ---
History of Present Illness H&P Date: 08/13/20 Chief Complaint: Lightheadedness This is a 64-year-old white female with known history of hypothyroidism who states at work, she had significant problems with lightheadedness. The patient had difficulty ambulating and states that it started yesterday at work. She works midnights and has been doing fine up until then. Significant stress with left arm pain and general medical issues. No previous history of seizure disorder. No CVA history in the past. The patient states some visual distortion during this time. No overt chest pressure. No palpitations. Workup so far has been negative. However, the patient states significant abdominal pain with guaiac positive stool in the ER. Hemoglobin has been stable. No history of peptic ulcer disease or GI bleeding in the past. We will go ahead and consult cardiology and GI. Review of Systems Constitutional: Denies chills, Denies fever Eyes: denies blurred vision, denies pain Ears, nose, mouth and throat: Denies headache, Denies sore throat Cardiovascular: Denies chest pain, Denies shortness of breath Respiratory: Denies cough Gastrointestinal: Reports as per HPI Musculoskeletal: Denies myalgias Past Medical History Past Medical History: Asthma, Thyroid Disorder Additional Past Medical History / Comment(s): THYROID History of Any Multi-Drug Resistant Organisms: None Reported Past Surgical History: Hysterectomy, Orthopedic Surgery Additional Past Surgical History / Comment(s): HAND SX X 2 Past Anesthesia/Blood Transfusion Reactions: Postoperative Nausea & Vomiting (PONV) Additional Past Anesthesia/Blood Transfusion Reaction / Comment(s): Difficult waking up. Past Psychological History: No Psychological Hx Reported Smoking Status: Never smoker Past Alcohol Use History: Occasional Additional Past Alcohol Use History / Comment(s): Quit smoking in the s. Past Drug Use History: None Reported - Past Family History Mother Family Medical History: No Reported History Father Family Medical History: CVA/TIA Medications and Allergies Home Medications Medication Instructions Recorded Confirmed Type Vitamin B Complex 1 cap PO DAILY@209909/26/17 08/12/20 History Levothyroxine Sodium [Euthyrox] 75 mcg PO DAILY@209908/12/20 08/12/20 History Meloxicam [Mobic] 7.5 mg PO BID PRN 08/12/20 08/12/20 History Multivit-Min/FA/Lycopen/Lutein 1 tab PO DAILY@2100 08/12/20 08/12/20 History [Centrum Silver Tablet] Allergies Allergy/AdvReac Type Severity Reaction Status Date / Time Penicillins Allergy Anaphylaxis Verified 08/12/20 14:04 Physical Exam Vitals: Vital Signs Temp Pulse Pulse Pulse Resp BP BP 08/13/20 02:00 98.2 F 65 18 144/86 08/13/20 01:05 74 17 08/12/20 20:00 98.4 F 74 17 155/112 08/12/20 19:30 17 08/12/20 17:50 99.1 F 75 17 180/104 08/12/20 17:30 99.1 F 75 17 173/100 08/12/20 16:56 86 16 167/87 08/12/20 15:10 87 16 08/12/20 12:56 82 16 126/86 08/12/20 12:23 97.9 F 93 20 161/88 Pulse Ox 08/13/20 02:00 99 08/13/20 01:05 08/12/20 20:00 99 08/12/20 19:30 08/12/20 17:50 99 08/12/20 17:30 99 08/12/20 16:56 99 08/12/20 15:10 99 08/12/20 12:56 99 08/12/20 12:23 100 Intake and Output 08/12/20 08/13/20 08/13/20 22:59 06:59 14:59 Other: # Voids 1 2 # Bowel Movements 1 Weight 72.575 kg - Constitutional General appearance: no acute distress - EENT Eyes: EOMI - Neck Neck: no lymphadenopathy - Respiratory Respiratory: bilateral: CTA - Cardiovascular Rhythm: regular Heart sounds: normal: S1, S2 Abnormal Heart Sounds: no S3 Gallop - Gastrointestinal General gastrointestinal: soft, no tenderness - Neurologic Neurologic: CNII-XII intact - Psychiatric Psychiatric: A&O x's 3, appropriate affect Results CBC & Chem 7: 08/12/20 23:39 08/12/20 12:55 Labs: Abnormal Lab Results - Last 24 Hours (Table) 08/12/20 08/12/20 08/12/20 Range/Units 12:55 12:55 12:55 WBC 13.1 H (3.8-10.6) k/uL Hct 46.1 H (34.0-46.0) % Neutrophils # 10.3 H (1.3-7.7) k/uL Glucose 110 H (74-99) mg/dL Stool Occult Blood Positive H (Negative) 08/12/20 Range/Units 23:39 WBC 12.1 H (3.8-10.6) k/uL Hct (34.0-46.0) % Neutrophils # 9.1 H (1.3-7.7) k/uL Glucose (74-99) mg/dL Stool Occult Blood (Negative) Thrombosis Risk Factor Assmnt - Choose All That Apply Any of the Below Risk Factors Present?: Yes Each Factor Represents 1 point: Obesity (BMI >25) Other Risk Factors: Yes Each Risk Factor Represents 2 Points: Age 61-74 years Other congenital or acquired thrombophilia - If yes, enter type in comment: No Thrombosis Risk Factor Assessment Total Risk Factor Score: 3 Thrombosis Risk Factor Assessment Level: Moderate Risk Assessment and Plan (1) Asthma Current Visit: Yes Status: Acute Code(s): J45.909 - UNSPECIFIED ASTHMA, UNCOMPLICATED SNOMED Code(s): 457725317 (2) Hypothyroidism Current Visit: Yes Status: Acute Code(s): E03.9 - HYPOTHYROIDISM, UNSPECIFIED SNOMED Code(s): 79499960 (3) GI bleed Current Visit: Yes Status: Acute Code(s): K92.2 - GASTROINTESTINAL HEMORRHAGE, UNSPECIFIED SNOMED Code(s): 80491368 (4) Near syncope Current Visit: Yes Status: Acute Code(s): R55 - SYNCOPE AND COLLAPSE SNOMED Code(s): 486001197 Plan: Check echocardiogram and duplex carotid. Ask GI to see the patient. We'll go ahead and ask cardiology to evaluate also. Reconcile home medications except NSAID. Check CBC in a.m. Dr. Urena's group Route covering for the weekend.
--- NOTE | 2020-08-13 08:39 | ECHOF ---
Referral Reason:Near [id number] MEASUREMENTS -------- HEIGHT: 154.9 cm WEIGHT: 72.6 kg BP: RVIDd: 2.7 cm (< 3.3) IVSd: 1.0 cm (0.6 - 1.1) LVIDd: 3.9 cm (3.9 - 5.3) LVPWd: 1.1 cm (0.6 - 1.1) IVSs: 1.4 cm LVIDs: 3.0 cm LVPWs: 1.6 cm LA Diam: 2.4 cm (2.7 - 3.8) Ao Diam: 2.8 cm (2.0 - 3.7) AV Cusp: 1.7 cm (1.5 - 2.6) MV EXCURSION: 16.920 mm (> 18.000) MV EF SLOPE: 44 mm/s (70 - 150) EPSS: 1.0 cm MV E Kwesi: 0.54 m/s MV DecT: 308 ms MV A Kwesi: 0.89 m/s MV E/A Ratio: 0.61 TAPSE: 22.56 mm FINDINGS -------- Resting bradycardia (HR<60bpm). This was a technically adequate study. The left ventricular size is normal. There is borderline concentric left ventricular hypertrophy. Overall left ventricular systolic function is mild-moderately impaired with, an EF between 40 - 45 % . Basal inferoseptal LV wall motion is dyskinetic. The right ventricle is normal in size. The left atrium is normal in size. The right atrium is normal in size. Interatrial and interventricular septum intact. The aortic valve is trileaflet, and appears structurally normal. No aortic stenosis or regurgitation. There is trace to mild mitral regurgitation. The tricuspid valve appears structurally normal. Unable to estimate RVSP due to inadequate TR jet s pectral doppler profile. Trace/mild (physiologic) pulmonic regurgitation. The aortic root size is normal. Normal inferior vena cava with normal inspiratory collapse consistent with estimated right atrial pre ssure of 5 mmHg. There is no pericardial effusion. CONCLUSIONS -------- 1. The left ventricular size is normal. 2. There is borderline concentric left ventricular hypertrophy. 3. Overall left ventricular systolic function is mild-moderately impaired with, an EF between 40 - 45 %. 4. Basal inferoseptal LV wall motion is dyskinetic. 5. The aortic valve is trileaflet, and appears structurally normal. No aortic stenosis or regurgitati on. 6. There is trace to mild mitral regurgitation. 7. Trace/mild (physiologic) pulmonic regurgitation. 8. There is no pericardial effusion. [employer] OFFICER: Betty Ocampo RDCS
[2020-08-13] MEDS: PANTOPRAZOLE 40 MG/10 ML VIAL IVP SCH (08:46)
[2020-08-13] MEDS ORDERED: SODIUM CHLORIDE 0.9% 1,000 ML in EMPTY BAG 1 BAG IV ONE (10:09)
[2020-08-13] MEDS ORDERED: NITROGLYCERIN SL TABS 0.4 MG TAB SUBLINGUAL PRN (10:09)
[2020-08-13] MEDS ORDERED: ATORVASTATIN 80 MG TAB PO STA (10:09)
[2020-08-13] MEDS ORDERED: ALPRAZolam 0.5 MG TAB PO PRN (10:09)
[2020-08-13] MEDS ORDERED: ASPIRIN 325 MG TAB PO STA (10:09)
[2020-08-13] MEDS ORDERED: ALPRAZolam 0.25 MG TAB PO PRN (10:09)
--- NOTE | 2020-08-13 10:12 | P.CRDCN ---
History of Present Illness Consult date: 08/13/20 History of present illness: HISTORY OF PRESENT ILLNESS: This is a 64-year-old female with a past medical history significant for for thyroidism, asthma, former nicotine dependence, and occasional alcohol use. 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 We have been asked to see the patient in consultation for presyncope. Patient examined at the bedside. Patient states yesterday morning when she woke up she felt a little "off". 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 She began to get diaphoretic. She then states everything became very foggy and her vision was very blurred. She states her coworkers got her a chair and sat her down. She did not loss consciousness. She states she started to feel better and went home from work. Once she got home from work, she developed abdominal pain and cramping. She report 3-4 episodes of bright red blood per rectum. She denies any chest pain or pressure. Denies shortness of breath. Denies dizziness or lightheadedness this morning. Patient's blood pressure was found to be elevated upon admission to the hospital. She states that she has never had a history of high blood pressure and usually her blood pressure runs on the lower side. EKG reveals sinus mechanism with PVCs Chest xray negative for acute process Carotid Doppler: No sonographic evidence for hemodynamically significant stenosis in the carotid arteries. Tardus parvus waveforms bilaterally may indicate proximal stenosis Laboratory data: WBC 12.1. Hemoglobin 13.9. Platelet count 312. Sodium 138. Potassium 4.5. BUN 13. Creatinine 0.77. Troponin negative 1. Stool for occult blood positive. Current home cardiac medications include none Echocardiogram completed revealed ejection fraction 40-45%, basal inferior septal LV wall is dyskinetic, trace to mild mitral regurgitation REVIEW OF SYSTEMS: At the time of my exam: CONSTITUTIONAL: Denies fever or chills. HEENT: Denies blurred vision, vision changes, or eye pain. Denies hemoptysis CARDIOVASCULAR: Denies chest pain. Denies orthopnea. Denies PND. Denies palpitations RESPIRATORY: Denies shortness of breath. GASTROINTESTINAL: Denies abdominal pain. Denies nausea or vomiting. HEMATOLOGIC: Denies bleeding disorders. GENITOURINARY: Denies any blood in urine. SKIN: Denies pruitis. Denies rash. PHYSICAL EXAM: VITAL SIGNS: Reviewed. GENERAL: Well-developed in no acute distress. HEENT: Head is normocephalic. Pupils are equal, round. Sclerae anicteric. Mucous membranes of the mouth are moist. Neck supple. No JVD or thyromegaly LUNGS: Respirations even and unlabored. Lungs essentially clear to auscultation bilaterally. HEART: Regular rate and rhythm. S1 and S2 heard. ABDOMEN: Soft. Nondistended. Nontender. EXTREMITIES: Normal range of motion. No clubbing or cyanosis. Peripheral pulses intact. No lower extremity edema NEUROLOGIC: Awake and alert. Oriented x 3. ASSESSMENT: Pre-syncope Cardiomyopathy, etiology unclear Hypertensive without known history of HTN Bright red blood per rectum, hemoglobin stable Hypothyroidism Previous nicotine dependence, patient quit smoking in 2012 PLAN: Continue to monitor blood pressure Continue telemetry monitoring Check orthostatic blood pressures Patient to undergo cardiac cath today due to abnormal echo findings Further recommendations pending patient course Nurse practitioner note has been reviewed by physician. Signing provider agrees with the documented findings, assessment, and plan of care. Past Medical History Past Medical History: Asthma, Thyroid Disorder Additional Past Medical History / Comment(s): THYROID History of Any Multi-Drug Resistant Organisms: None Reported Past Surgical History: Hysterectomy, Orthopedic Surgery Additional Past Surgical History / Comment(s): HAND SX X 2 Past Anesthesia/Blood Transfusion Reactions: Postoperative Nausea & Vomiting (PONV) Additional Past Anesthesia/Blood Transfusion Reaction / Comment(s): Difficult waking up. Past Psychological History: No Psychological Hx Reported Smoking Status: Never smoker Past Alcohol Use History: Occasional Additional Past Alcohol Use History / Comment(s): Quit smoking in the . Past Drug Use History: None Reported - Past Family History Mother Family Medical History: No Reported History Father Family Medical History: CVA/TIA Medications and Allergies Home Medications Medication Instructions Recorded Confirmed Type Vitamin B Complex 1 cap PO DAILY@209909/26/17 08/12/20 History Levothyroxine Sodium [Euthyrox] 75 mcg PO DAILY@209908/12/20 08/12/20 History Meloxicam [Mobic] 7.5 mg PO BID PRN 08/12/20 08/12/20 History Multivit-Min/FA/Lycopen/Lutein 1 tab PO DAILY@2100 08/12/20 08/12/20 History [Centrum Silver Tablet] Allergies Allergy/AdvReac Type Severity Reaction Status Date / Time Penicillins Allergy Anaphylaxis Verified 08/12/20 14:04 Physical Exam Vitals: Vital Signs Temp Pulse Pulse Pulse Resp BP BP 08/13/20 07:00 98.7 F 78 20 163/96 08/13/20 02:00 98.2 F 65 18 144/86 08/13/20 01:05 74 17 08/12/20 20:00 98.4 F 74 17 155/112 08/12/20 19:30 17 08/12/20 17:50 99.1 F 75 17 180/104 08/12/20 17:30 99.1 F 75 17 173/100 08/12/20 16:56 86 16 167/87 08/12/20 15:10 87 16 08/12/20 12:56 82 16 126/86 08/12/20 12:23 97.9 F 93 20 161/88 Pulse Ox 08/13/20 07:00 97 08/13/20 02:00 99 08/13/20 01:05 08/12/20 20:00 99 08/12/20 19:30 08/12/20 17:50 99 08/12/20 17:30 99 08/12/20 16:56 99 08/12/20 15:10 99 08/12/20 12:56 99 08/12/20 12:23 100 Intake and Output 08/12/20 08/13/20 08/13/20 22:59 06:59 14:59 Other: # Voids 1 2 # Bowel Movements 1 Weight 72.575 kg Results 08/12/20 23:39 08/12/20 12:55 Cardiac Enzymes 08/12/20 08/12/20 Range/Units 12:55 12:55 AST 32 (14-36) U/L Troponin I <0.012 (0.000-0.034) ng/mL Coagulation 08/12/20 Range/Units 12:55 PT 10.3 (9.0-12.0) sec APTT 23.5 (22.0-30.0) sec CBC 08/12/20 08/12/20 Range/Units 12:55 23:39 WBC 13.1 H 12.1 H (3.8-10.6) k/uL RBC 4.88 4.41 (3.80-5.40) m/uL Hgb 15.0 13.9 (11.4-16.0) gm/dL Hct 46.1 H 42.2 (34.0-46.0) % Plt Count 352 312 (150-450) k/uL Comprehensive Metabolic Panel 08/12/20 Range/Units 12:55 Sodium 138 (137-145) mmol/L Potassium 4.5 (3.5-5.1) mmol/L Chloride 102 (98-107) mmol/L Carbon Dioxide 28 (22-30) mmol/L BUN 13 (7-17) mg/dL Creatinine 0.77 (0.52-1.04) mg/dL Glucose 110 H (74-99) mg/dL Calcium 9.6 (8.4-10.2) mg/dL AST 32 (14-36) U/L ALT 20 (4-34) U/L Alkaline Phosphatase 75 (38-126) U/L Total Protein 7.3 (6.3-8.2) g/dL Albumin 4.8 (3.5-5.0) g/dL Current Medications Generic Name Dose Route Start Last Admin Trade Name Freq PRN Reason Stop Dose Admin Calcium Carbonate/Glycine 500 mg 08/12/20 20:06 Calcium Carbonate 500 Mg Chewable PO TID PRN Heartburn Cyclobenzaprine HCl 5 mg 08/12/20 20:01 08/12/20 21:19 Cyclobenzaprine 5 Mg Tab PO 5 mg TID PRN Administration Muscle Spasm Levothyroxine Sodium 75 mcg 08/12/20 21:00 08/12/20 20:39 Levothyroxine 75 Mcg Tab PO 75 mcg DAILY@2099 [facility] Administration Multivit/Ca Carb/B Cmplx/FA/Prenat 1 each 08/12/20 21:00 08/12/20 20:39 Folic Acid-Vit B Complex-Vit C 1 Cap PO 1 each DAILY@2099 [facility] Administration Multivitamins 1 each 08/12/20 21:00 08/12/20 20:39 Multivitamins, Thera 1 Each Tab PO 1 each DAILY@2099 [facility] Administration Ondansetron HCl 4 mg 08/12/20 20:57 08/12/20 21:16 Ondansetron 4 Mg/2 Ml Vial IVP 4 mg Q6HR PRN Administration Nausea And Vomiting Pantoprazole Sodium 40 mg 08/12/20 20:15 08/13/20 08:46 Pantoprazole 40 Mg/10 Ml Vial IVP 40 mg DAILY [facility] Administration Intake and Output 08/12/20 08/13/20 08/13/20 22:59 06:59 14:59 Other: # Voids 1 2 # Bowel Movements 1 Weight 72.575 kg 08/12/20 23:39 08/12/20 12:55
[2020-08-13 10:54] LABS: Glucose,Whole Blood 79 mg/dL (75-99)
[2020-08-13] MEDS ORDERED: IV FLUID CONTINUATION 1,000 ML IV ONE (11:30)
[2020-08-13] MEDS ORDERED: fentaNYL (PF) 50 MCG/ML 2 ML AMP IV ONE (11:33)
[2020-08-13] MEDS ORDERED: MIDAZOLAM 2 MG/2 ML VIAL IV ONE (11:33)
[2020-08-13] MEDS ORDERED: LIDOCAINE 1% INJ 10MG/ML (20 ML MDV) SQ ONE (11:33)
[2020-08-13] MEDS: VERAPAMIL SYRINGE (5 MG/10 ML) INTRAARTER ONE ×2 (11:36→11:56)
[2020-08-13] MEDS ORDERED: HEPARIN SODIUM 1,000 UN/ML (10ML VL) IV ONE (11:40)
[2020-08-13] MEDS ORDERED: IOPAMIDOL-370 125ML BTL INJ ONE (11:55)
[2020-08-13] MEDS ORDERED: IOPAMIDOL-370 50ML BTL INJ ONE (11:56)
[2020-08-13] MEDS ORDERED: RX INFO: IV CONTRAST WAS GIVEN 1 EACH MISC MISCELLANE PRN (12:33)
--- NOTE | 2020-08-13 13:19 | P.CARDCATH ---
Description of Procedure: PROCEDURES PERFORMED: Left heart catheterization, bilateral coronary angiography, left ventriculogram INDICATION: Cardiomyopathy, syncope HISTORY: She is a pleasant 64-year-old female with family history of coronary artery disease who presented after a second syncopal episode while at work. Patient began to feel nauseous, short of breath, diaphoresis with syncope. Echocardiogram was performed which showed decreased ejection fraction 40-45% with possible inferior hypokinesis. Therefore recommendation was for heart catheterization to exclude any coronary artery disease. CONSENT:I have discussed the risks, benefits and alternative therapies for the above-mentioned procedure and for both sedation/analgesia as well as necessary blood product administration, if indicated, as they pertain to this patient. The patient has indicated understanding and acceptance of the risks and procedures discussed. PROCEDURE: After the risks, benefits and alternatives of the above mentioned procedure explained in detail with the patient, informed consent was obtained. Patient was taken to the catheterization lab and prepped and draped in usual fashion. 1% lidocaine was used to anesthetize the right radial artery. A 6- Marshallese sheath was placed in the right radial artery using modified Seldinger technique. Left coronary angiography was performed with a 5-Marshallese JL 3.5 catheter and right coronary angiography was performed with a 5-Marshallese JR5 catheter in various views. A 5-Marshallese pigtail catheter was inserted into the left ventricle and pressure measurements were obtained. Left ventriculography was performed in the YE projection with a power injection. The right radial sheath was removed and a TR band was placed with hemostasis achieved. The patient tolerated the procedure well. Patient was transported back to the post catheterization holding area in stable condition. Conscious Sedation: Patient was monitored under the direct supervision of vision of myself for conscious sedation using Versed and fentanyl for a total duration of 27 minutes HEMODYNAMICS: Aorta: 141/87 LV: 144/1, LVEDP 4 SELECTIVE CORONARY ARTERIOGRAPHY: LEFT MAIN: The left main is a large caliber vessel which bifurcates into the LAD and circumflex. There is no significant stenosis. LEFT ANTERIOR DESCENDING CORONARY ARTERY: LAD is a large caliber vessel which wraps around to the apex. There is a mid LAD 30% stenosis. LEFT CIRCUMFLEX CORONARY ARTERY: Left circumflex is a moderate caliber vessel without significant stenosis. RIGHT CORONARY ARTERY: The right coronary artery is a large caliber vessel which gives off a PDA and PLV branch and is the dominant vessel. There is no significant stenosis. LEFT VENTRICULOGRAPHY: Left ventricular ejection fraction is 55% without wall motion abnormalities. There is no significant mitral regurgitation and no significant gradient with pullback across the aortic valve. FINAL IMPRESSION: 1. Relatively normal coronary arteries as described above with only mid LAD 30% stenosis. 2. Normal ejection fraction 55% percent without wall motion abnormalities. PLAN: 1. Aggressive risk factor modification per most recent ACC/AHA guidelines. 2. Follow-up in the office in 1-2 weeks.
[2020-08-13] MEDS: lisinopriL 10 MG TAB PO SCH (13:39)
--- NOTE | 2020-08-13 14:24 | P.CONS ---
History of Present Illness - Reason for Consult Consult date: 08/13/20 GI bleed Requesting physician: Rios Arnold - Chief Complaint Syncope - History of Present Illness This is a 64-year-old female with a past medical history of asthma and thyroid disorder who presented to the emergency department yesterday with complaints of lightheadedness and syncope. She reportedly was at work and felt lightheaded, fell to the ground but did not pass out. She denied any chest pain or shortness of breath that time. She felt very weak, she then went home. When she was at home she had 3-4 episodes of blood per rectum states the first 2 and last one was mixed was loose stool. She has had no bleeding since she has been admitted to the hospital. She did have some mild cramping left side of her abdomen. Denies any recent sick contacts. She states she has had colitis in the past. Patient denies any anticoagulation, she does use multiple back daily. On admission she had a hemoglobin of 15, INR 1.0., occult stool was positive. Patient was seen by cardiology part of her workup for syncope, EKG revealed sinus rhythm with PVC echocardiogram completed revealing ejection fraction 40- 45%, basal inferior septal LV wall is dyskinetic, trace to mild mitral regurgitation therefore patient was scheduled for cardiac catheterization today mild LAD 30% stenosis no intervention needed. Continue weaning with medical therapy. Patient experiencing chest pain after cardiac catheterization. He denies any nausea, vomiting and states the cramping has improved. Current labs WBC 12.1, hemoglobin 13.9, hematocrit 42.2, platelets 312,000, INR 1.0, total bilirubin 1.0, alkaline phosphatase 75, A CT 32, ALT 20. Review of Systems REVIEW OF SYSTEMS: CARDIOPULMONARY: No chest pain or shortness of breath. No palpitations. Gastrointestinal: Mild cramping. No nausea or vomiting. No hematemesis, coffee-ground emesis. Rectal bleeding bright red blood 3-4 episodes yesterday. GENITOURINARY: No dysuria or hematuria. MUSCULOSKELETAL: Reports normal range of motion., Joint pain. SKIN: No rashes. No jaundice. ENDOCRINE: No chills, fevers. No excessive weight gain or loss. No polydipsia or polyuria. PSYCHIATRIC: Unremarkable. NEUROLOGY: No change in mental status. Dizziness, weakness. ENT: Vision unremarkable. CONSTITUTIONAL: No recent weight loss. No fever, chills, night sweats. Past Medical History Past Medical History: Asthma, Thyroid Disorder Additional Past Medical History / Comment(s): THYROID History of Any Multi-Drug Resistant Organisms: None Reported Past Surgical History: Hysterectomy, Orthopedic Surgery Additional Past Surgical History / Comment(s): HAND SX X 2 Past Anesthesia/Blood Transfusion Reactions: Postoperative Nausea & Vomiting (PONV) Additional Past Anesthesia/Blood Transfusion Reaction / Comm: Difficult waking up. Past Psychological History: No Psychological Hx Reported Smoking Status: Never smoker Past Alcohol Use History: Occasional Additional Past Alcohol Use History / Comment(s): Quit smoking in the s. Past Drug Use History: None Reported - Past Family History Mother Family Medical History: No Reported History Father Family Medical History: CVA/TIA Medications and Allergies Home Medications Medication Instructions Recorded Confirmed Type Vitamin B Complex 1 cap PO DAILY@209909/26/17 08/12/20 History Levothyroxine Sodium [Euthyrox] 75 mcg PO DAILY@209908/12/20 08/12/20 History Meloxicam [Mobic] 7.5 mg PO BID PRN 08/12/20 08/12/20 History Multivit-Min/FA/Lycopen/Lutein 1 tab PO DAILY@209908/12/20 08/12/20 History [Centrum Silver Tablet] Allergies Allergy/AdvReac Type Severity Reaction Status Date / Time Penicillins Allergy Anaphylaxis Verified 08/12/20 14:04 Physical Exam Vitals: Vital Signs Temp Pulse Pulse Pulse Resp BP BP 08/13/20 13:00 72 16 169/119 08/13/20 12:45 75 16 179/103 08/13/20 12:30 78 16 162/104 08/13/20 12:15 76 18 152/97 08/13/20 08:00 16 08/13/20 07:00 98.7 F 78 20 163/96 08/13/20 02:00 98.2 F 65 18 144/86 08/13/20 01:05 74 17 08/12/20 20:00 98.4 F 74 17 155/112 08/12/20 19:30 17 08/12/20 17:50 99.1 F 75 17 180/104 08/12/20 17:30 99.1 F 75 17 173/100 08/12/20 16:56 86 16 167/87 08/12/20 15:10 87 16 Pulse Ox 08/13/20 13:00 08/13/20 12:45 08/13/20 12:30 08/13/20 12:15 08/13/20 08:00 08/13/20 07:00 97 08/13/20 02:00 99 08/13/20 01:05 08/12/20 20:00 99 08/12/20 19:30 08/12/20 17:50 99 08/12/20 17:30 99 08/12/20 16:56 99 08/12/20 15:10 99 Intake and Output 08/12/20 08/13/20 08/13/20 22:59 06:59 14:59 Intake Total 500 Balance 500 Intake: IV 500 Other: # Voids 1 2 # Bowel Movements 1 Weight 72.575 kg General appearance: The patient is alert, oriented, appears in no acute distress. HET: Head is normocephalic and atraumatic. Conjunctiva pink. Sclera anicteric. Neck: Supple without lymphadenopathy. Trachea midline. Heart: S1 S2. Regular rate and rhythm. Lungs: Clear to auscultation. Abdomen: Soft, left lower quadrant tenderness, nondistended with bowel sounds. No guarding or rigidity. Extremities: Normal skin color and turgor. No pedal edema.. Neurological: No focal deficits. Alert and oriented 3. Results CBC & Chem 7: 08/12/20 23:39 08/12/20 12:55 Labs: Abnormal Lab Results - Last 24 Hours (Table) 08/12/20 08/12/20 08/12/20 Range/Units 12:55 12:55 12:55 WBC 13.1 H (3.8-10.6) k/uL Hct 46.1 H (34.0-46.0) % Neutrophils # 10.3 H (1.3-7.7) k/uL Glucose 110 H (74-99) mg/dL Stool Occult Blood Positive H (Negative) 08/12/20 Range/Units 23:39 WBC 12.1 H (3.8-10.6) k/uL Hct (34.0-46.0) % Neutrophils # 9.1 H (1.3-7.7) k/uL Glucose (74-99) mg/dL Stool Occult Blood (Negative) Assessment and Plan (1) GI bleed Narrative/Plan: 64-year-old female presented to the emergency department with complaints of dizziness and nearly passing out at work. She had no complaints of shortness of breath, chest pain, or palpitations. After leaving work and returning home the patient had 3-4 episodes of prior blood per rectum every 4 came to the emergency department for further evaluation. She had mild cramping with the bleeding. States she has a prior history of colitis. Denies recent sick contacts, fevers, or chills. Hemoglobin on admission was 15, she had a drop today t 13.9., But no further rectal bleeding since admitted. She did have positive occult stool. She is not on any anticoagulation. She was seen by cardiology for syncopal episode, was noted to have PVCs on EKG, underwent an echocardiogram that was at normal therefore went for cardiac catheterization today. Likely we are dealing with acute colitis, possible etiologies include ischemic, inflammatory, or infectious. At this time we will continue to monitor as patient just underwent cardiac catheterization and is having chest pain. If abdominal pain, diarrhea or rectal bleeding returns will consider CT abdomen and pelvis, however at this time will hold off due to contrast with cardiac cath. Current Visit: Yes Status: Acute Code(s): K92.2 - GASTROINTESTINAL HEMORRHAGE, UNSPECIFIED SNOMED Code(s): 18393803 (2) Near syncope Current Visit: Yes Status: Acute Code(s): R55 - SYNCOPE AND COLLAPSE SNOMED Code(s): 812058188 Plan: 1. Clear liquid diet 2. Daily CBC, transfuse her hemoglobin less than 7 3. Protonix 40 mg daily 4. Continue with recommendations per cardiology 5. No plans on endoscopic evaluation at this time, will evaluate daily. Patient not medically stable at this point. If diarrhea, abdominal pain, or rectal bleeding returns will order CT abdomen and pelvis. Will hold off for now due to recent contrast with cardiac catheterization. 6. Avoid NSAIDs Thank you for this consultation, we will continue to follow Dr. Bond I agree with the dictator's note, documented as a scribe by Arlene Chan.
[2020-08-13 16:40] LABS: Chol/HDL Ratio 2.49
[2020-08-13] MEDS: MULTIVITAMINS, THERA 1 EACH TAB PO SCH (19:57)
[2020-08-13] MEDS: LEVOTHYROXINE 75 MCG TAB PO SCH (19:57)
[2020-08-13] MEDS: FOLIC ACID-VIT B COMPLEX-VIT C 1 CAP PO SCH (21:19)
[2020-08-13 21:40] LABS: Chol/HDL Ratio 2.95; LDL Cholesterol,Calculated 89.2 mg/dL (0.0-131.0); VLDL Calculation 21.8 mg/dL (5.00-40.00)
[2020-08-14 07:45] VITALS: BP 137/83; PULSE 77; RESP 18; TEMP 97.8
[2020-08-14] MEDS: PANTOPRAZOLE 40 MG/10 ML VIAL IVP SCH (08:57)
[2020-08-14] MEDS: lisinopriL 10 MG TAB PO SCH (08:57)
[2020-08-14] MEDS ORDERED: ASPIRIN 81 MG PO SCH (09:00)
[2020-08-14 09:19] LABS: HCT 38.2 % (37.2-46.3); HGB 12.8 g/dL (12.0-15.0); MCH 31.8 pg (27.0-32.0); MCHC 33.5 g/dL (32.0-37.0); Mean Platelet Volume 10.5 fL (9.5-12.2); Platelet Count 303 X 10*3/uL (140-440); RBC 4.02 X 10*6/uL (4.10-5.20); RDW 13.8 % (11.5-14.5); WBC 12.62 X 10*3/uL (4.50-10.00)
--- NOTE | 2020-08-14 11:41 | P.PN ---
Subjective Progress Note Date: 08/14/20 HISTORY OF PRESENT ILLNESS: This is a 64-year-old female with a past medical history significant for for thyroidism, asthma, former nicotine dependence, and occasional alcohol use. Ewa lilly does not follow with a behavioral assistant. We have been asked to see the patient in consultation for presyncope. Patient examined at the bedside. Patient states yesterday morning when she woke up she felt a little "off". 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 She began to get diaphoretic. She then states everything became very foggy and her vision was very blurred. She states her coworkers got her a chair and sat her down. She did not loss consciousness. She states she started to feel better and went home from work. Once she got home from work, she developed abdominal pain and cramping. She report 3-4 episodes of bright red blood per rectum. She denies any chest pain or pressure. Denies shortness of breath. Denies dizziness or lightheadedness this morning. Patient's blood pressure was found to be elevated upon admission to the hospital. She states that she has never had a history of high blood pressure and usually her blood pressure runs on the lower side. EKG reveals sinus mechanism with PVCs Chest xray negative for acute process Carotid Doppler: No sonographic evidence for hemodynamically significant stenosis in the carotid arteries. Tardus parvus waveforms bilaterally may indicate proximal stenosis Laboratory data: WBC 12.1. Hemoglobin 13.9. Platelet count 312. Sodium 138. Potassium 4.5. BUN 13. Creatinine 0.77. Troponin negative 1. Stool for occult blood positive. Current home cardiac medications include none Echocardiogram completed revealed ejection fraction 40-45%, basal inferior septal LV wall is dyskinetic, trace to mild mitral regurgitation 08/14/2020 Patient is status post cardiac catheterization with Dr. Estrada revealing 30% stenosis of mid LAD. Medical management was recommended. Patient examined this point the bedside. Patient denies any further episodes of chest pain or pressure. She denies shortness of breath. She reports left lower quadrant abdominal pain. She denies any further episodes of rectal bleeding. PHYSICAL EXAM: VITAL SIGNS: Reviewed. GENERAL: Well-developed in no acute distress. HEENT: Head is normocephalic. Pupils are equal, round. Sclerae anicteric. Mucous membranes of the mouth are moist. Neck supple. No JVD or thyromegaly LUNGS: Respirations even and unlabored. Lungs essentially clear to auscultation bilaterally. HEART: Regular rate and rhythm. S1 and S2 heard. ABDOMEN: Soft. Nondistended. Nontender. EXTREMITIES: Normal range of motion. No clubbing or cyanosis. Peripheral pulses intact. No lower extremity edema. Right radial Site with pulse present NEUROLOGIC: Awake and alert. Oriented x 3. ASSESSMENT: Pre-syncope Cardiomyopathy, nonischemic, status post cardiac catheterization revealing 30% stenosis of mid LAD Hypertensive without known history of HTN Bright red blood per rectum, hemoglobin stable Hypothyroidism Previous nicotine dependence, patient quit smoking in 2012 PLAN: Continue current cardiac medications Patient is stable for discharge home from a cardiac standpoint We will sign off. Please reconsult if needed Patient to follow up outpatient with Dr. Estarda Nurse practitioner note has been reviewed by physician. Signing provider agrees with the documented findings, assessment, and plan of care. Objective - Vital Signs Vital signs: Vital Signs Temp 97.8 F 08/14/20 07:00 Pulse 77 08/14/20 07:00 Resp 18 08/14/20 07:00 BP 137/83 08/14/20 07:00 Pulse Ox 99 08/14/20 07:00 Intake & Output 08/13/20 08/14/20 08/14/20 18:59 06:59 18:59 Intake Total 500 Balance 500 Intake: IV 500 Other: # Voids 2 1 - Labs CBC & Chem 7: 08/14/20 05:46 08/12/20 12:55 Labs: Abnormal Lab Results - Last 24 Hours (Table) 08/12/20 08/14/20 Range/Units 12:55 05:46 WBC 12.62 H (4.50-10.00) X 10*3/uL RBC 4.02 L (4.10-5.20) X 10*6/uL HDL Cholesterol 76.0 H (40.0-60.0) mg/dL
--- NOTE | 2020-08-14 12:22 | P.PN ---
Subjective Progress Note Date: 08/14/20 Principal diagnosis: GI bleed, abdominal pain, near-syncope The patient is seen in bed today reporting overall she is feeling better. No further diarrhea. No further blood per rectum. Abdominal pain much improved. Objective - Vital Signs Vital signs: Vital Signs Temp 97.8 F 08/14/20 07:00 Pulse 77 08/14/20 07:00 Resp 18 08/14/20 07:00 BP 137/83 08/14/20 07:00 Pulse Ox 99 08/14/20 07:00 Intake & Output 08/13/20 08/14/20 08/14/20 18:59 06:59 18:59 Intake Total 500 Balance 500 Intake: IV 500 Other: # Voids 2 1 - Exam On physical examination, patient appears comfortable in no apparent distress. HEAD: Normocephalic, atraumatic. EYES: No scleral icterus. No conjunctival injection. MOUTH: No lesions, tongue midline. NECK: Trachea midline, no gross abnormalities. ABDOMEN: Soft, mild tenderness to palpation in the left lower quadrant of her abdomen. Bowel sounds are positive. No organomegaly. No guarding or rigidity. EXTREMITIES: No pedal edema. SKIN: No rashes, no jaundice. NEUROLOGIC: Alert and oriented x3. No focal deficits. - Labs CBC & Chem 7: 08/14/20 05:46 08/12/20 12:55 Labs: Abnormal Lab Results - Last 24 Hours (Table) 08/12/20 08/14/20 Range/Units 12:55 05:46 WBC 12.62 H (4.50-10.00) X 10*3/uL RBC 4.02 L (4.10-5.20) X 10*6/uL HDL Cholesterol 76.0 H (40.0-60.0) mg/dL Assessment and Plan (1) GI bleed Narrative/Plan: 64-year-old female presented to the emergency department with complaints of dizziness and nearly passing out at work. She had no complaints of shortness of breath, chest pain, or palpitations. After leaving work and returning home the patient had 3-4 episodes of bright blood per rectum and came to the emergency department for further evaluation. She had mild cramping with the bleeding. States she has a prior history of colitis. Denies recent sick contacts, fevers, or chills. Hemoglobin on admission was 15, and has remained stable with no further bleeding reported. She did have positive occult stool. She is not on any anticoagulation. She was seen by cardiology for syncopal episode, was noted to have PVCs on EKG, underwent an echocardiogram that was at normal therefore went for cardiac catheterization. Likely we are dealing with acute colitis, possible etiologies include ischemic, inflammatory, or infectious or perirectal bleeding in the setting of diarrhea and possible gastroenteritis or other etiology. Symptomatically the patient is much improved. No further diarrhea or blood per rectum. She is asking for diet to be Advanced. Current Visit: Yes Status: Acute Code(s): K92.2 - GASTROINTESTINAL HEMORRHAG E, UNSPECIFIED SNOMED Code(s): 99895845 (2) Near syncope Current Visit: Yes Status: Acute Code(s): R55 - SYNCOPE AND COLLAPSE SNOMED Code(s): 238933976 Plan: Supportive care Okay for low fiber diet Continue to monitor symptoms closely Continue monitor CBC, BMP, LFTs Cardiology evaluation as per the cardiology service Plan was for computed tomography scan of the abdomen if symptoms reoccurred however symptomatically patient is doing much better and asking for advancement of her diet and discharge, she can follow up in the GI clinic in 2-3 weeks for further evaluation and discussion on possible repeat colonoscopy Thank you for allowing us to participate in the care of the patient
--- NOTE | 2020-08-21 01:26 | P.DS ---
Providers Date of admission: 08/13/20 22:27 Expected date of discharge: 08/14/20 Attending physician: Rios Arnold Consults: 08/12/20 14:33 Consult Physician Urgent Consulting Provider: Jeremie Bond Consult Reason/Comments: GI bleed Do you want consulting provider notified?: Yes Primary care physician: Rios Arnold Hospital Course: 64-year-old female with a past medical history significant for for thyroidism, asthma, former nicotine dependence, and occasional alcohol use. 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 We have been asked to see the patient in consu ltation for presyncope. Patient examined at the bedside. Patient states yesterday morning when she woke up she felt a little "off". 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 She began to get diaphoretic. She then states everything became very foggy and her vision was very blurred. She states her coworkers got her a chair and sat her down. She did not loss consciousness. She states she started to feel better and went home from work. Once she got home from work, she developed abdominal pain and cramping. She report 3-4 episodes of bright red blood per rectum. She denies any chest pain or pressure. Denies shortness of breath. Denies dizziness or lightheadedness this morning. Patient's blood pressure was found to be elevated upon admission to the hospital. She states that she has never had a history of high blood pressure and usually her blood pressure runs on the lower side. EKG reveals sinus mechanism with PVCs Chest xray negative for acute process Carotid Doppler: No sonographic evidence for hemodynamically significant stenosis in the carotid arteries. Tardus parvus waveforms bilaterally may indicate proximal stenosis Laboratory data: WBC 12.1. Hemoglobin 13.9. Platelet count 312. Sodium 138. Potassium 4.5. BUN 13. Creatinine 0.77. Troponin negative 1. Stool for occult blood positive. Current home cardiac medications include none Echocardiogram completed revealed ejection fraction 40-45%, basal inferior septal LV wall is dyskinetic, trace to mild mitral regurgitation PLAN: Continue current cardiac medications Patient is stable for discharge home from a cardiac standpoint We will sign off. Please reconsult if needed Patient to follow up outpatient with Dr. Estrada patient was also evaluated for GIB Supportive care Okay for low fiber diet Continue to monitor symptoms closely Continue monitor CBC, BMP, LFTs Cardiology evaluation as per the cardiology service Plan was for computed tomography scan of the abdomen if symptoms reoccurred however symptomatically patient is doing much better and asking for advancement of her diet and discharge, she can follow up in the GI clinic in 2-3 weeks for further evaluation and discussion on possible repeat colonoscopy Patient Condition at Discharge: Fair Plan - Discharge Summary Discharge Rx Participant: No New Discharge Prescriptions: New Aspirin 81 mg PO DAILY chew lisinopriL [Zestril] 10 mg PO DAILY #30 tab Continue Vitamin B Complex 1 cap PO DAILY@2099 Meloxicam [Mobic] 7.5 mg PO BID PRN PRN Reason: Pain Multivit-Min/FA/Lycopen/Lutein [Centrum Silver Tablet] 1 tab PO DAILY@2099 Levothyroxine Sodium [Euthyrox] 75 mcg PO DAILY@2099 Discharge Medication List Vitamin B Complex 1 cap PO DAILY@209909/26/17 [History] Levothyroxine Sodium [Euthyrox] 75 mcg PO DAILY@209908/12/20 [History] Meloxicam [Mobic] 7.5 mg PO BID PRN 08/12/20 [History] Multivit-Min/FA/Lycopen/Lutein [Centrum Silver Tablet] 1 tab PO DAILY@209908/12/20 [History] Aspirin 81 mg PO DAILY chew 08/14/20 [Rx] lisinopriL [Zestril] 10 mg PO DAILY #30 tab 08/14/20 [Rx] Follow up Appointment(s)/Referral(s): Stan Estrada DO [STAFF PHYSICIAN] - 1 Week Rios Arnold MD [Primary Care Provider] - 1-2 days Patient Instructions/Handouts: Chest Pain (DC), Syncope (DC) Discharge Disposition: HOME SELF-CARE
== END 2020-08-14 14:46 | disposition home or self-care (01) | DRG 287 ==
LOC: EC 12:10 → 6NMEDSUR 15:10 → OBSVTOIN 08-13 22:27
PROVIDERS: ADMIT Family Medicine; ATTEND Family Medicine
PROC: B2111ZZ Fluoroscopy of Multiple Coronary Arteries using Low Osmolar Contrast (ICD-10-PCS; principal; 2020-08-13 10:35)
PROC: 4A023N7 Measurement of Cardiac Sampling and Pressure, Left Heart, Percutaneous Approach (ICD-10-PCS; principal; 2020-08-13 10:35)
PROC: B2151ZZ Fluoroscopy of Left Heart using Low Osmolar Contrast (ICD-10-PCS; principal; 2020-08-13 10:35)
DX: I42.8 Other cardiomyopathies (principal); K52.9 Noninfective gastroenteritis and colitis, unspecified; J45.909 Unspecified asthma, uncomplicated; E03.9 Hypothyroidism, unspecified; I34.0 Nonrheumatic mitral (valve) insufficiency; I25.10 Atherosclerotic heart disease of native coronary artery without angina pectoris; R03.0 Elevated blood-pressure reading, without diagnosis of hypertension; I49.3 Ventricular premature depolarization; Z91.81 History of falling; Z20.822 Contact with and (suspected) exposure to COVID-19; Z79.890 Hormone replacement therapy; Z87.891 Personal history of nicotine dependence; Z90.710 Acquired absence of both cervix and uterus; Z88.0 Allergy status to penicillin; Z98.890 Other specified postprocedural states; Z82.3 Family history of stroke; R55 Syncope and collapse
CPT/HCPCS: 36415; 71046; 80053; 80061; 82272; 84484; 85025; 85027; 85610; 85730; 86850; 86900; 86901; 87635; 93005; 93306; 93458; 93880; 96360; 99285

== ENCOUNTER → 2021-08-04 | Outpatient (CLI) | payer BC ==
--- NOTE | 2021-08-05 08:09 | MM ---
Reason for Exam: Screening (asymptomatic). Last mammogram was performed 1 year(s) and 2 month(s) ago. Patient History: Menarche at age 11. First Full-Term at age 37. Late child-bearing (after 32). Right ovary removed at age 38. Hysterectomy at age 38. Postmenopausal. Patient has history of breast feeding. Patient used Hormonal Contraceptives for 15 years. Risk Values: Noni 5 year model risk: 2.4%. NCI Lifetime model risk: 10.0%. Prior Study Comparison: 09/18/2017 Bilateral Screening Mammogram, [facility]. 10/01/2018 Bilateral Screening Mammogram, [facility]. 05/21/2020 Bilateral Screening Mammogram, [facility]. Tissue Density: The breast tissue is heterogeneously dense. This may lower the sensitivity of mammography. Findings: Analyzed By CAD. There is no suspicious group of microcalcifications or new suspicious mass in either breast. Overall Assessment: Benign, BI-RAD 2 Management: Screening Mammogram of both breasts in 1 year. A clinical breast exam by your physician is recommended on an annual basis and results should be correlated with mammographic findings. Electronically signed and approved by: Simone Lee M.D. Radiologis
== END | disposition home or self-care (01) ==
LOC: RADMAMWWP 09:20
PROVIDERS: ATTEND Family Medicine
DX: Z12.31 Encounter for screening mammogram for malignant neoplasm of breast (principal); Z78.0 Asymptomatic menopausal state
CPT/HCPCS: 77067

== ENCOUNTER 2022-01-28 03:34 | Observation (INO) | payer BC ==
[2022-01-28 04:22] LABS: Basophils # (A) 0.1 k/uL (0-0.2); Basophils % (A) 1 %; Eosinophils # (A) 0.3 k/uL (0-0.7); Eosinophils % (A) 3 %; HCT 42.8 % (34.0-46.0); HGB 14.5 gm/dL (11.4-16.0); Lymphocytes # (A) 2.7 k/uL (1.0-4.8); Lymphocytes % (A) 29 %; MCH 31.7 pg (25.0-35.0); MCHC 33.9 g/dL (31.0-37.0); MCV 93.6 fL (80.0-100.0); Mean Platelet Volume 7.8; Monocytes # (A) 0.3 k/uL (0-1.0); Monocytes % (A) 3 %; Neutrophils # (A) 5.9 k/uL (1.3-7.7); Neutrophils % (A) 62 %; Platelet Count 340 k/uL (150-450); RBC 4.58 m/uL (3.80-5.40); RDW 12.9 % (11.5-15.5); WBC 9.5 k/uL (3.8-10.6)
--- NOTE | 2022-01-28 04:27 | XR ---
EXAMINATION TYPE: XR chest 2V DATE OF EXAM: 01/28/2022 COMPARISON: 08/12/2020 HISTORY: Chest pain TECHNIQUE: FINDINGS: Heart is normal. Lungs are clear. Diaphragm is normal. Bony thorax is intact. The pulmonary vascularity is normal. IMPRESSION: Normal chest. No change.
[2022-01-28 04:31] LABS: Partial Thromboplastin Time 25.2 sec (22.0-30.0); Prothrombin Time 10.5 sec (9.0-12.0)
--- NOTE | 2022-01-28 04:34 | ED ---
Chest Pain HPI - General Chief Complaint: Chest Pain Stated Complaint: chest pain,light headed Source: patient Mode of arrival: ambulatory Limitations: no limitations - History of Present Illness Initial Comments: He 6-year-old female presents emergency Department with chest pain. States that she was at work when she had sudden onset of chest pain around 1:10 AM. She does work on an assembly line. States that the pain started in the left side of her chest and radiated to her jaw. She had associated nausea and diaphoresis. She does have a cardiac history. Follows with Dr. Estrada. States that she had a cardiac cath last year which showed a 30% blockage. She has been taking medications and watching her diet. She follows every 6 months and has an echo. The pain lasted for approximately 10 minutes before it resolved. She told her boss recommended that she come the emergency room for evaluation. She denies ripping or tearing sensation to her back. No fevers, chills or cough. No other alleviating, precipitating or modifying factors - Related Data Home Medications Medication Instructions Recorded Confirmed Vitamin B Complex 1 cap PO DAILY@209909/26/17 08/12/20 Levothyroxine Sodium [Euthyrox] 75 mcg PO DAILY@209908/12/20 08/12/20 Meloxicam [Mobic] 7.5 mg PO BID PRN 08/12/20 08/12/20 Multivit-Min/FA/Lycopen/Lutein 1 tab PO DAILY@209908/12/20 08/12/20 [Centrum Silver Tablet] Previous Rx's Medication Instructions Recorded Aspirin 81 mg PO DAILY chew 08/14/20 lisinopriL [Zestril] 10 mg PO DAILY #30 tab 08/14/20 Allergies Allergy/AdvReac Type Severity Reaction Status Date / Time Penicillins Allergy Anaphylaxis Verified 01/28/22 04:21 Review of Systems ROS Statement: Those systems with pertinent positive or pertinent negative responses have been documented in the HPI. ROS Other: All systems not noted in ROS Statement are negative. EKG Findings - EKG Comments: EKG Findings:: EKG is interpreted by myself. Demonstrates a sinus rhythm with a rate of 66. PA interval 120. QRS 88. QTC 414. No acute ST segment elevations or depressions Past Medical History Past Medical History: Asthma, Thyroid Disorder Additional Past Medical History / Comment(s): THYROID History of Any Multi-Drug Resistant Organisms: None Reported Past Surgical History: Hysterectomy, Orthopedic Surgery Additional Past Surgical History / Comment(s): HAND SX X 2 Past Anesthesia/Blood Transfusion Reactions: Postoperative Nausea & Vomiting (PONV) Additional Past Anesthesia/Blood Transfusion Reaction / Comment(s): Difficult w aking up. Past Psychological History: No Psychological Hx Reported Smoking Status: Never smoker Past Alcohol Use History: Occasional Past Drug Use History: None Reported - Past Family History Mother Family Medical History: No Reported History Father Family Medical History: CVA/TIA General Exam Limitations: no limitations Course Vital Signs 01/28/22 01/28/22 03:48 05:55 Temperature 98.4 F Pulse Rate 82 66 Respiratory 20 16 Rate Blood Pressure 144/90 160/98 O2 Sat by Pulse 98 97 Oximetry Chest Pain MDM - MDM Upon arrival patient was placed into room 8. A thorough history and physical exam is performed. She is hooked to continuous pulse ox and cardiac monitoring. 12 EKG was obtained. Laboratory studies are conducted and reviewed. First troponin is negative. Patient does go for a chest x-ray which is interpreted by myself as normal and read by the radiologist. Patient was given an aspirin. Recommend admission for cardio consultation and to trend her troponins. Patient was agreeable to this. Spoke with Dr. Carlisle from [facility] who was agreeable to admit the patient Disposition Clinical Impression: Chest pain Disposition: ADMITTED IP TO THIS HOSP Condition: Stable Is patient prescribed a controlled substance at d/c from ED?: No Time of Disposition: :22 Decision to Admit Reason: Admit from EC Decision Date: 01/28/22 Decision Time: 05:23
[2022-01-28 04:51] LABS: ALT 25 U/L (4-34); AST 37 U/L (14-36); African American GFR (CKD) >90 (>60 ml/min/1.73 sqM); Albumin 4.7 g/dL (3.5-5.0); Alkaline Phosphatase 76 U/L (38-126); Anion Gap 7 mmol/L; Blood Urea Nitrogen 10 mg/dL (7-17); Calcium 9.3 mg/dL (8.4-10.2); Carbon Dioxide 23 mmol/L (22-30); Chloride 108 mmol/L (98-107); Glucose 102 mg/dL (74-99); Lipase 176 U/L (23-300); Magnesium 2.2 mg/dL (1.6-2.3); Non-African American GFR(CKD) >90 (>60 ml/min/1.73 sqM); Potassium 4.7 mmol/L (3.5-5.1); Sodium 138 mmol/L (137-145); Total Bilirubin 0.5 mg/dL (0.2-1.3); Total Protein 7.3 g/dL (6.3-8.2)
[2022-01-28] MEDS ORDERED: ASPIRIN 81 MG PO STA (05:21)
[2022-01-28] MEDS ORDERED: NALOXONE 0.4 MG/ML 1 ML VIAL IV PRN (05:23)
[2022-01-28] MEDS: lisinopriL 20 MG TAB PO SCH (17:18)
[2022-01-28] MEDS: LEVOTHYROXINE 75 MCG TAB PO SCH (17:18)
[2022-01-28] MEDS ORDERED: NON FORMULARY DRUG (Vitamin B Complex [Vitamin B Complex] 1 EACH Capsule) PO SCH (21:00)
[2022-01-28] MEDS: CHOLECALCIFEROL 25 MCG (1000 IU) TABLET PO SCH (21:07)
[2022-01-28] MEDS: MULTIVITAMINS, THERA 1 EACH TAB PO SCH (21:07)
--- NOTE | 2022-01-28 23:00 | P.HPIM ---
History of Present Illness H&P Date: 01/28/22 Chief Complaint: Chest pain Patient is a 66-year-old female with a known history of asthma, hypothyroidism and history of neck injury several years ago presents to ER with complaints of chest pain. Patient states that she was at work and was suddenly developed chest pain around 1:30 AM. She works midnight shifts. 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 Pain is mainly left anterior chest and across the upper chest and also complains having right sided jaw pain and also bilateral shoulder pain. Patient felt diaphoretic with pain. Patient is nausea and vomi ting. no radiation of the pain to the left arm. no associated dizziness or lightheadedness. pain lasted about 10 minutes. patient was sent to er for evaluation. patient states that she had a cardiac catheterization last year and showed 30% blockage. patient states that she does take mobic for left shoulder pain. EKG showed sinus rhythm. Chest x-ray showed normal chest. No change. Laboratory showed WBC 9.5 hemoglobin 14.5 and platelets 340 sodium 138 potassium 4.7 chloride 108 bicarb is 23 BUN 10 and creatinine 0.69 and blood sugar is 102 Troponin x3 negative proBNP 73 and lipase level is 176. Denies any pleuritic chest pain. Blood pressure was 144/91 pulse 82 respiration 20, pulse ox 98% on room air on admission. Review of Systems Constitutional: Patient denies any fever or chills . no Generalized weakness. Abdomen: Patient denied any nausea or vomiting or abd. pain Cardiovascular: Patient denies any chest pain or short of breath no palpitations. Respiratory: patient denied any cough . no sputum production. No shortness of breath Neurologic: Patient denied any numbness or tingling headache. Musculoskeletal: Patient denies any complaints of joint swelling or deformity. Skin: Negative Psychiatric: Negative Endocrine: No heat or cold intolerance. No recent weight gain. Genitourinary: No dysuria or hematuria. All other 14 point ROS negative except the above Past Medical History Past Medical History: Asthma, Thyroid Disorder Additional Past Medical History / Comment(s): THYROID History of Any Multi-Drug Resistant Organisms: None Reported Past Surgical History: Hysterectomy, Orthopedic Surgery Additional Past Surgical History / Comment(s): HAND SX X 2 Past Anesthesia/Blood Transfusion Reactions: Postoperative Nausea & Vomiting (PONV) Additional Past Anesthesia/Blood Transfusion Reaction / Comment(s): Difficult waking up. Past Psychological History: No Psychological Hx Reported Smoking Status: Never smoker Past Alcohol Use History: Occasional Additional Past Alcohol Use History / Comment(s): Quit smoking in the . Past Drug Use History: None Reported - Past Family History Mother Family Medical History: No Reported History Father Family Medical History: CVA/TIA Medications and Allergies Home Medications Medication Instructions Recorded Confirmed Type Vitamin B Complex 1 cap PO HS@209909/26/17 01/28/22 History Levothyroxine Sodium [Euthyrox] 75 mcg PO DAILY@1700 08/12/20 01/28/22 History Multivit-Min/FA/Lycopen/Lutein 1 tab PO HS@209908/12/20 01/28/22 History [Centrum Silver Tablet] Cholecalciferol [Vitamin D3 (25 50 mcg PO HS@209901/28/22 01/28/22 History Mcg = 1000 Iu)] lisinopriL 40 mg PO DAILY@1700 01/28/22 01/28/22 History Allergies Allergy/AdvReac Type Severity Reaction Status Date / Time Penicillins Allergy Anaphylaxis Verified 01/28/22 12:23 Physical Exam Vitals: Vital Signs Temp Pulse Pulse Resp BP BP Pulse Ox 01/28/22 07:00 98.0 F 68 16 149/88 100 01/28/22 05:55 66 16 160/98 97 01/28/22 03:48 98.4 F 82 20 144/90 98 Intake and Output 01/28/22 01/28/22 01/28/22 06:59 14:59 22:59 Intake Total 118 Balance 118 Intake: Oral 118 Other: # Voids 1 Weight 61.235 kg 61.235 kg PHYSICAL EXAMINATION: Patient is lying in the bed comfortably, no acute distress, awake alert and oriented.. HEENT: Normocephalic. Neck is supple. Pupils reactive. Nostrils clear. Oral cavity is moist. Neck reveals no JVD, carotid bruits, or thyromegaly. CHEST EXAMINATION: Trachea is central. Symmetrical expansion. Lung pritchard clear to auscultation and percussion. CARDIAC: Normal S1, S2 with no gallops. No murmurs ABDOMEN: Soft. Bowel sounds present. Nontender. No organomegaly. No abdominal bruits. Extremities: reveal no edema. No clubbing or cyanosis Neurologically awake, alert, oriented x3 with well-coordinated movements. No focal deficits noted Skin: No rash or skin lesions. Psychiatric: Coperative. Nonsuicidal, Musculoskeletal: No joint swelling or deformity. Normal range of motion. Results CBC & Chem 7: 01/28/22 04:07 01/28/22 04:07 Labs: Abnormal Lab Results - Last 24 Hours (Table) 01/28/22 Range/Units 04:07 Chloride 108 H (98-107) mmol/L Glucose 102 H (74-99) mg/dL AST 37 H (14-36) U/L Thrombosis Risk Factor Assmnt - DVT/VTE Prophylaxis DVT/VTE Prophylaxis: Pharmacologic Prophylaxis ordered Assessment and Plan Assessment: Atypical chest pain. Rule out ACS. Likely musculoskeletal Prior history of cardiac catheterization Hypothyroidism History of neck injury several years ago DVT prophylaxis with heparin subcu Plan: Patient will be continued on telemetry monitoring, serial EKG and troponin x3 negative. Patient was started on aspirin. Continue with home medications including Synthroid and follow closely. Cardiology was consulted. 2D echocardiogram was ordered. Time with Patient: Greater than 30
--- NOTE | 2022-01-29 09:10 | P.CRDCN ---
History of Present Illness Consult date: 01/29/22 Chief complaint: chest pain History of present illness: The patient is a pleasant 66-year-old female patient with a past medical history significant for CAD identified on heart catheterization in 2020 with mild disease involving the LAD as well as hypertension and dyslipidemia who presented to the hospital complaining of chest discomfort. 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 It was associated with sweating and shortness of breath. No dizziness or lightheaded is no presyncope or syncope. No feeling of heart racing or fluttering. The discomfort lasted about 15 minutes she decided to come for further investigation. She underwent a chest x-ray which showed no acute abnormalities and she underwent an EKG which showed sinus rhythm with no significant ST or T- wave abnormalities. Beside that she underwent cardiac enzymes came in to be unremarkable. She stated that she has been not having any chest discomfort since she came into the hospital. Past Medical History Past Medical History: Asthma, Thyroid Disorder Additional Past Medical History / Comment(s): THYROID History of Any Multi-Drug Resistant Organisms: None Reported Past Surgical History: Hysterectomy, Orthopedic Surgery Additional Past Surgical History / Comment(s): HAND SX X 2 Past Anesthesia/Blood Transfusion Reactions: Postoperative Nausea & Vomiting (PONV) Additional Past Anesthesia/Blood Transfusion Reaction / Comment(s): Difficult waking up. Past Psychological History: No Psychological Hx Reported Smoking Status: Never smoker Past Alcohol Use History: Occasional Additional Past Alcohol Use History / Comment(s): Quit smoking in the . Past Drug Use History: None Reported - Past Family History Mother Family Medical History: No Reported History Father Family Medical History: CVA/TIA Medications and Allergies Home Medications Medication Instructions Recorded Confirmed Type Vitamin B Complex 1 cap PO HS@209909/26/17 01/28/22 History Levothyroxine Sodium [Euthyrox] 75 mcg PO DAILY@0 08/12/20 01/28/22 History Multivit-Min/FA/Lycopen/Lutein 1 tab PO HS@209908/12/20 01/28/22 History [Centrum Silver Tablet] Cholecalciferol [Vitamin D3 (25 50 mcg PO HS@2100 01/28/22 01/28/22 History Mcg = 1000 Iu)] lisinopriL 40 mg PO DAILY@1700 01/28/22 01/28/22 History Allergies Allergy/AdvReac Type Severity Reaction Status Date / Time Penicillins Allergy Anaphylaxis Verified 01/28/22 12:23 Physical Exam Vitals: Vital Signs Temp Pulse Resp BP Pulse Ox 01/29/22 08:20 98.7 F 72 16 120/71 98 01/29/22 02:30 97.8 F 65 17 104/73 99 01/28/22 20:48 98.0 F 60 18 106/65 99 01/28/22 17:17 66 16 114/62 95 01/28/22 15:00 98.3 F 73 16 130/84 99 Intake and Output 01/28/22 01/29/22 01/29/22 22:59 06:59 14:59 Intake Total 118 Balance 118 Intake: Oral 118 Other: # Voids 1 1 - Constitutional General appearance: no acute distress - Respiratory Respiratory: bilateral: CTA - Cardiovascular Rhythm: regular Heart sounds: normal: S1, S2 Results 01/28/22 04:07 01/28/22 04:07 Cardiac Enzymes 01/28/22 Range/Units 10:37 Troponin I <0.012 (0.000-0.034) ng/mL Current Medications Generic Name Dose Route Start Last Admin Trade Name Freq PRN Reason Stop Dose Admin Cholecalciferol 50 mcg 01/28/22 21:00 01/28/22 21:07 Cholecalciferol 25 Mcg (1000 Iu) Tablet PO 50 mcg HS@2100 SAVANNAH Administration Levothyroxine Sodium 75 mcg 01/28/22 17:00 01/28/22 17:18 Levothyroxine 75 Mcg Tab PO 75 mcg DAILY@1700 SAVANNAH Administration Lisinopril 40 mg 01/28/22 17:00 01/28/22 17:18 Lisinopril 20 Mg Tab PO 40 mg DAILY@1700 SAVANNAH Administration Multivitamins 1 each 01/28/22 21:00 01/28/22 21:07 Multivitamins, Thera 1 Each Tab PO 1 each HS@2100 SAVANNAH Administration Naloxone HCl 0.2 mg 01/28/22 05:23 Naloxone 0.4 Mg/Ml 1 Ml Vial IV Q2M PRN Opioid Reversal Intake and Output 1201/29/22 01/29/22 22:59 06:59 14:59 Intake Total 118 Balance 118 Intake: Oral 118 Other: # Voids 1 1 01/28/22 04:07 01/28/22 04:07 Assessment and Plan Assessment: Assessment Atypical chest discomfort Mild CAD on heart catheterization in 2020 Hypertension Plan Acute coronary event was ruled out Obtain a stress test to rule out severe/progression in the severity of CAD Follow-up with the patient
[2022-01-29 09:44] LABS: Basophils % (A) 1.1 %; Eosinophils # (A) 0.47 X 10*3/uL (0.04-0.35); Eosinophils % (A) 5.3 %; HCT 45.1 % (37.2-46.3); HGB 14.9 g/dL (12.0-15.0); Immature Grans, Automated 0.2 %; Lymphocytes # (A) 3.03 X 10*3/uL (0.90-5.00); Lymphocytes % (A) 34.1 %; MCH 31.2 pg (27.0-32.0); MCV 94.4 fL (80.0-97.0); Mean Platelet Volume 9.8 fL (9.5-12.2); Monocytes # (A) 0.59 X 10*3/uL (0.20-1.00); Monocytes % (A) 6.6 %; NRBC Per 100 WBC 0 /100 WBCS (0.0-0.0); Neutrophils # (A) 4.68 X 10*3/uL (1.80-7.70); Neutrophils % (A) 52.7 %; Platelet Count 360 X 10*3/uL (140-440); RBC 4.78 X 10*6/uL (4.10-5.20); RDW 13.7 % (11.5-14.5); WBC 8.89 X 10*3/uL (4.50-10.00)
[2022-01-29 09:57] LABS: African American GFR (CKD) 106.1 (60.0-200.0); Anion Gap 10.9 mmol/L (10.00-18.00); BUN/Creat Ratio 16.29 Ratio (12.00-20.00); Blood Urea Nitrogen 11.4 mg/dL (9.0-27.0); Calcium 9.8 mg/dL (8.7-10.3); Carbon Dioxide 26.1 mmol/L (20.0-27.5); Non-African American GFR(CKD) 91.6 (60.0-200.0); Potassium 4.7 mmol/L (3.5-5.5)
--- NOTE | 2022-01-29 15:11 | CA ---
Transthoracic Echo Report Name: Gypsy Magaña Age: 66 Gender: F : 1955 Exam Date: 01/28/2022 10:49 Exam Location: [place] Echo Ht (in): 61 Wt (lb): 135 Ordering Physician: Rhea Shannon DO Attending/Referring Phys: [id number], Mirtha Gutter Mouth Cutter Alyssa Thompson RDCS Procedure CPT: Indications: Chest Pain Cardiac Hx: Technical Quality: Technically difficult study Contrast 1: Lumason Total Dose (mL): 4 Contrast 2: Total Dose (mL): MEASUREMENTS (Male / Female) Normal Values 2D ECHO LV Diastolic Diameter PLAX 4.0 cm 4.2 - 5.9 / 3.9 - 5.3 cm LV Systolic Diameter PLAX 3.0 cm IVS Diastolic Thickness 0.9 cm 0.6 - 1.0 / 0.6 - 0.9 cm LVPW Diastolic Thickness 1.1 cm 0.6 - 1.0 / 0.6 - 0.9 cm LV Relative Wall Thickness 0.5 RV Internal Dim ED PLAX 2.8 cm LA Volume 28.6 cm??? 18 - 58 / 22 - 52 cm??? M-MODE Aortic Root Diameter MM 2.5 cm LA Systolic Diameter MM 3.3 cm LA Ao Ratio MM 1.3 AV Cusp Separation MM 1.7 cm DOPPLER AV Peak Velocity 128.9 cm/s AV Peak Gradient 6.6 mmHg AV Mean Velocity 94.2 cm/s AV Mean Gradient 3.8 mmHg AV Velocity Time Integral 24.0 cm LVOT Peak Velocity 84.4 cm/s LVOT Peak Gradient 2.9 mmHg LVOT Velocity Time Integral 17.5 cm MV Area PHT 3.1 cm??? Mitral E Point Velocity 55.3 cm/s Mitral A Point Velocity 86.7 cm/s Mitral E to A Ratio 0.6 MV Deceleration Time 244.8 ms FINDINGS Left Ventricle Mildly increased left ventricular wall thickness. Left ventricular cavity size normal. Mildly reduced global left ventricular systolic function. Left ventricular ejection fraction is estimated at 45-50 %. Right Ventricle Mild right ventricular dilatation. Right ventricular systolic pressure within normal limits. Right Atrium Normal right atrial size. Left Atrium Normal left atrial size. Mitral Valve Structurally normal mitral valve. Mild mitral regurgitation Aortic Valve No aortic valve stenosis or regurgitation. Tricuspid Valve Structurally normal tricuspid valve. Mild tricuspid regurgitation. Pulmonic Valve Trace pulmonic regurgitation. Pericardium No pericardial effusion. Aorta Normal size aortic root and proximal ascending aorta. CONCLUSIONS Mildly impaired LV function was EF between 45-50% Mild mitral regurgitation Previewed by: Dr. Moris Thomas MD (Electronically Signed) Final Date: 29 January 2022 15:09
[2022-01-29] MEDS: LEVOTHYROXINE 75 MCG TAB PO SCH (17:59)
[2022-01-29] MEDS: lisinopriL 20 MG TAB PO SCH (17:59)
[2022-01-29] MEDS: CHOLECALCIFEROL 25 MCG (1000 IU) TABLET PO SCH (21:19)
[2022-01-29] MEDS: MULTIVITAMINS, THERA 1 EACH TAB PO SCH (21:19)
--- NOTE | 2022-01-30 00:17 | P.PN ---
Subjective Progress Note Date: 01/29/22 Patient is a 66-year-old female with a known history of asthma, hypothyroidism and history of neck injury several years ago presents to ER with complaints of chest pain. Patient states that she was at work and was suddenly developed chest pain around 1:30 AM. She works midnight shifts. 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 Pain is mainly left anterior chest and across the upper chest and also complains having right sided jaw pain and also bilateral shoulder pain. Patient felt diaphoretic with pain. Patient is nausea and vomiting. no radiation of the pain to the left arm. no associated dizziness or lightheadedness. pain lasted about 10 minutes. patient was sent to er for evaluation. patient states that she had a cardiac catheterization last year and showed 30% blockage. patient states that she does take mobic for left shoulder pain. EKG showed sinus rhythm. Chest x-ray showed normal chest. No change. Laboratory showed WBC 9.5 hemoglobin 14.5 and platelets 340 sodium 138 potassium 4.7 chloride 108 bicarb is 23 BUN 10 and creatinine 0.69 and blood sugar is 102 Troponin x3 negative proBNP 73 and lipase level is 176. Denies any pleuritic chest pain. Blood pressure was 144/91 pulse 82 respiration 20, pulse ox 98% on room air on admission. 01/29/2022 Patient is currently resting in bed. Awake alert and oriented x3. No complaints of chest pain or shortness of breath. No palpitations. Serial EKG and troponin x3 negative. Cardiology is planning for stress test tomorrow. No nausea vomiting abdominal pain or diarrhea. No cough or sputum production. Current medications reviewed. Objective - Vital Signs Vital signs: Vital Signs Temp 98.1 F 01/29/22 14:06 Pulse 78 01/29/22 14:06 Resp 16 01/29/22 14:06 BP 132/82 01/29/22 14:06 Pulse Ox 99 01/29/22 14:06 FiO2 Intake & Output 01/29/22 01/29/22 01/30/22 06:59 18:59 06:59 Intake Total 118 Balance 118 Intake: Oral 118 Other: # Voids 1 1 - Exam PHYSICAL EXAMINATION: Patient is lying in the bed comfortably, no acute distress, awake alert and oriented.. HEENT: Normocephalic. Neck is supple. Pupils reactive. Nostrils clear. Oral cavity is moist. Neck reveals no JVD, carotid bruits, or thyromegaly. CHEST EXAMINATION: Trachea is central. Symmetrical expansion. Lung pritchard clear to auscultation and percussion. CARDIAC: Normal S1, S2 with no gallops. No murmurs ABDOMEN: Soft. Bowel sounds present. Nontender. No organomegaly. No abdominal bruits. Extremities: reveal no edema. No clubbing or cyanosis Neurologically awake, alert, oriented x3 with well-coordinated movements. No focal deficits noted Skin: No rash or skin lesions. Psychiatric: Coperative. Nonsuicidal, Musculoskeletal: No joint swelling or deformity. Normal range of motion. - Labs CBC & Chem 7: 01/29/22 06:12 01/29/22 06:12 Labs: Abnormal Lab Results - Last 24 Hours (Table) 01/29/22 Range/Units 06:12 Eosinophils # 0.47 H (0.04-0.35) X 10*3/uL Assessment and Plan Assessment: Atypical chest pain. Ruled out ACS. Stress test tomorrow. Prior history of cardiac catheterization Hypothyroidism History of neck injury several years ago DVT prophylaxis with heparin subcu Plan: Patient will be continued on telemetry monitoring, serial EKG and troponin x3 negative. Patient was started on aspirin. Continue with home medications including Synthroid . 2D echocardiogram was ordered.' Cardiology is planning for stress test tomorrow.
[2022-01-30] MEDS ORDERED: HEPARIN SODIUM,PORCINE 10,000 UNIT in SODIUM CHLORIDE 0.9% 1,000 ML IRRIGATION PRN (07:00)
[2022-01-30] MEDS ORDERED: HEPARIN SODIUM,PORCINE 2,500 UNIT in SODIUM CHLORIDE 0.9% 250 ML IRRIGATION PRN (07:00)
--- NOTE | 2022-01-30 08:47 | P.PN ---
Subjective Progress Note Date: 01/30/22 Principal diagnosis: Chest pain This is a 66-year-old female who presented to the emergency room after episode of chest pain. She reports she was at work when had a sudden onset of chest pain and severe right jaw pain. Pain has since subsided. She's been seen and evaluated cardiology. Ejection fraction is between 45 and 50%. She did have a heart catheterization done last year in 2020 which showed mild CAD. A stress test has been ordered for today Objective - Vital Signs Vital signs: Vital Signs Temp 98.2 F 01/30/22 07:35 Pulse 73 01/30/22 07:35 Resp 16 01/30/22 07:35 BP 120/75 01/30/22 07:35 Pulse Ox 96 01/30/22 07:35 FiO2 Intake & Output 01/29/22 01/30/22 01/30/22 18:59 06:59 18:59 Intake Total 118 Balance 118 Intake: Oral 118 Other: Voiding Method Toilet # Voids 1 2 - Constitutional General appearance: Present: cooperative. Absent: no acute distress - EENT Eyes: Present: EOMI, PERRLA - Neck Neck: Absent: rigidity - Respiratory Respiratory: bilateral: CTA - Cardiovascular Rhythm: regular Heart sounds: normal: S1, S2 - Gastrointestinal General gastrointestinal: Present: normal bowel sounds, soft. Absent: tenderness - Integumentary Integumentary: Present: normal, normal turgor - Psychiatric Psychiatric: Present: A&O x's 3, appropriate affect, intact judgment & insight - Labs CBC & Chem 7: 01/29/22 06:12 01/29/22 06:12 Labs: Abnormal Lab Results - Last 24 Hours (Table) 01/29/22 Range/Units 06:12 Eosinophils # 0.47 H (0.04-0.35) X 10*3/uL Assessment and Plan (1) Chest pain Current Visit: Yes Status: Acute Code(s): R07.9 - CHEST PAIN, UNSPECIFIED SNOMED Code(s): 28493183 (2) Mild CAD Current Visit: Yes Status: Acute Code(s): I25.10 - ATHSCL HEART DISEASE OF [place] CORONARY ARTERY W/O ANG PCTRS SNOMED Code(s): 847145299 (3) Hypothyroidism Current Visit: No Status: Acute Code(s): E03.9 - HYPOTHYROIDISM, UNSPECIFIED SNOMED Code(s): 72215705 Plan: Will await results of stress test. If cleared by cardiology today anticipate discharge later today. Patient seen and evaluated by nurse practitioner, physician in agreement with plan
--- NOTE | 2022-01-30 10:52 | P.PN ---
Subjective Progress Note Date: 01/30/22 History of present illness: The patient is a pleasant 66-year-old female patient with a past medical history significant for CAD identified on heart catheterization in 2020 with mild disease involving the LAD as well as hypertension and dyslipidemia who presented to the hospital complaining of chest discomfort. 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 It was associated with sweating and shortness of breath. No dizziness or lightheaded is no presyncope or syncope. No feeling of heart racing or fluttering. The discomfort lasted about 15 minutes she decided to come for further inves tigation. She underwent a chest x-ray which showed no acute abnormalities and she underwent an EKG which showed sinus rhythm with no significant ST or T-wave abnormalities. Beside that she underwent cardiac enzymes came in to be unremarkable. She stated that she has been not having any chest discomfort since she came into the hospital. 01/30 Patient denies having any chest pain today. She is scheduled for an exercise stress echocardiogram today. child monitor has been a sinus rhythm. Blood pressure 120/75 Physical examination: Gen: This is a 66-year-old female. She is resting bed appears to be comfortable. VS: Reviewed HEENT: Head is atraumatic, normocephalic. Pupils equal, round. Sclerae is anicteric. NECK: Supple. No JVD. LUNGS: Clear to auscultation. No wheezes or rhonchi. No intercostal retractions. HEART: Regular rate and rhythm. No murmur. ABDOMEN: Soft. No masses. No tenderness. EXTREMITIES: No pedal edema. No calf tenderness. NEUROLOGICAL: Patient is awake, alert and oriented x3. Assessment: Atypical chest pain, acute coronary syndrome ruled out Mild coronary artery disease on heart catheterization and 2020 Hypertension Plan: Obtain stress test to rule out severe/progression and the severity of coronary artery disease If stress test is within normal limits, patient is cleared for discharge home with plan to follow-up in the office in 2 weeks. Thank you kindly for this consultation. Nurse practitioner note has been reviewed, I agree with documented findings and plan of care. Patient was seen and examined. Objective - Vital Signs Vital signs: Vital Signs Temp 98.0 F 01/30/22 02:49 Pulse 83 01/30/22 02:49 Resp 17 01/30/22 02:49 BP 95/65 01/30/22 02:49 Pulse Ox 98 01/30/22 02:49 FiO2 Intake & Output 01/29/22 01/30/22 01/30/22 18:59 06:59 18:59 Intake Total 118 Balance 118 Intake: Oral 118 Other: Voiding Method Toilet # Voids 1 2 - Labs CBC & Chem 7: 01/29/22 06:12 01/29/22 06:12 Labs: Abnormal Lab Results - Last 24 Hours (Table) 01/29/22 Range/Units 06:12 Eosinophils # 0.47 H (0.04-0.35) X 10*3/uL
--- NOTE | 2022-01-30 11:52 | CA ---
Stress Echo Report Gypsy Magaña Age: 66 Gender: F : 1955 Exam Date: 01/30/2022 10:36 Exam Location: [place] [facility] Ht (in): 61 Wt (lb): 135 Ordering Physician: Moris Thomas MD ([id number]) Referring Physician: RISA,, Electrical Sign Wirer: Alyssa Thompson RDCS Technologist Procedure CPT: Indication: Chest Pain ICD-9 Codes: Rhythm: Patient History: Cardiac Medications: Medications in past 24 hours: Contrast: Stress Results Protocol: Sha Total dose(mL): Exercise Duration (min:sec): [address] Depression (mm): Angina Score: Whiteside Score: METS: 4.4 Resting HR: 108 Resting BP: 121 / 95 Peak HR: 151 Peak BP: 140 / 82 Max Predicted HR: 156 97 % Max Predicted HR Target HR: 133 Double Product: [id number] Stress Summary: BP Response: Reason for Termination: MAX EXERTION/TARGET HR Cardiac Symptoms: CHEST PAIN IN RECOVERY ECG Analysis Resting ECG: Normal sinus rhythm normal axis normal intervals Stress EC mm upsloping ST segment depression in inferolateral leads Arrhythmia: Echo Analysis Resting Echo: Normal left ventricular size wall motion systolic function Peak Echo Analysis: Hypokinesis involving inferolateral wall MEASUREMENTS (Male/Female) Normal Values CONCLUSIONS Poor exercise tolerance Nondiagnostic EKG changes with exercise Abnormal stress echo Dr. Christiano Fontenot MD (Electronically Signed) Final Date: 30 January 2022 11:51
[2022-01-30] MEDS ORDERED: ASPIRIN 325 MG TAB PO STA (12:47)
[2022-01-30] MEDS ORDERED: NITROGLYCERIN SL TABS 0.4 MG TAB SUBLINGUAL PRN (12:47)
[2022-01-30] MEDS ORDERED: ALPRAZolam 0.5 MG TAB PO PRN (12:47)
[2022-01-30] MEDS ORDERED: ALPRAZolam 0.25 MG TAB PO PRN (12:47)
[2022-01-30] MEDS ORDERED: ATORVASTATIN 80 MG TAB PO STA (12:47)
[2022-01-30] MEDS ORDERED: SODIUM CHLORIDE 0.9% 1,000 ML in EMPTY BAG 1 BAG IV ONE (15:14)
[2022-01-30] MEDS: LEVOTHYROXINE 75 MCG TAB PO SCH (16:59)
[2022-01-30] MEDS: lisinopriL 20 MG TAB PO SCH (16:59)
[2022-01-30] MEDS: CHOLECALCIFEROL 25 MCG (1000 IU) TABLET PO SCH (20:21)
[2022-01-30] MEDS: MULTIVITAMINS, THERA 1 EACH TAB PO SCH (20:21)
[2022-01-31] MEDS ORDERED: ASPIRIN 325 MG TAB PO ONE (06:00)
[2022-01-31 06:47] VITALS: TEMP 97.8
[2022-01-31] MEDS ORDERED: VERAPAMIL 2.5 MG/ML 2 ML AMP ONE (07:23)
[2022-01-31] MEDS ORDERED: HEPARIN SODIUM 1,000 UN/ML (10ML VL) ONE (07:25)
[2022-01-31] MEDS ORDERED: IV FLUID CONTINUATION 1,000 ML IV ONE (07:28)
[2022-01-31] MEDS ORDERED: SODIUM CHLORIDE 0.9% 1,000 ML IV ONE (07:32)
[2022-01-31] MEDS ORDERED: LIDOCAINE 1% INJ 10MG/ML (5 ML VIAL-PF) SQ ONE (07:39)
[2022-01-31] MEDS ORDERED: VERAPAMIL SYRINGE (5 MG/10 ML) INTRAARTER ONE (07:40)
[2022-01-31] MEDS ORDERED: MIDAZOLAM 2 MG/2 ML VIAL IV ONE (07:40)
[2022-01-31] MEDS ORDERED: HEPARIN SODIUM 1,000 UN/ML (10ML VL) IV ONE (07:42)
[2022-01-31] MEDS ORDERED: IOPAMIDOL-370 125ML BTL INJ ONE (07:49)
[2022-01-31] MEDS ORDERED: RX INFO: IV CONTRAST WAS GIVEN 1 EACH MISC MISCELLANE PRN (07:55)
--- NOTE | 2022-01-31 07:58 | P.PCN ---
Date of Procedure: 01/31/22 Operative Findings: CARDIAC CATHETERIZATION PERFORMING PHYSICIAN: Moris Thomas MD, RPVI PROCEDURE PERFORMED: 1. Selective right and left coronary angiogram 2. Left heart catheterization INDICATION: Chest discomfort and abnormal stress test for this 66-year-old female patient who presented to the hospital a few days ago. COMPLICATION: None APPROACH: Right radial artery LEVEL OF SEDATION: Moderate with a sedation length of 12 minutes PROCEDURE DESCRIPTION: After obtaining an informed consent, the patient was brought to cardiac slab puller. Local anesthesia was performed using lidocaine subcutaneously. The right radial artery was cannulated using Seldinger technique, the guidewire passed easily, following that we advanced a 5-Welsh sheath dilator assembly, the wire and dilator were removed and sheath was flushed. Following that, 2 mg of verapamil along with 5000 unit heparin were given. Selective right and left coronary angiogram using a 6-Welsh JR4 and JL 3.5 catheters. Following that we did left heart catheterization using 6-Welsh pigtail catheter. The procedure was completed there was no complication. SELECTIVE CORONARY ANGIOGRAM: The right coronary artery: Large caliber vessel and a dominant vessel. The mid RCA has mild disease only. Left main: Is angiographically normal. Bifurcates into a LCx and LAD The left circumflex: Large caliber vessel and nondominant dominant vessel. The LCx appeared to have mild disease only in the mid portion of large OM branch. The left anterior descending artery: Large caliber vessel. The LAD has mild disease in the midportion. HEMODYNAMICS: The LVEDP was 8 mmHg was no significant gradient across aortic valve CONCLUSION: 1. Mild triple-vessel CAD 2. Normal left-sided filling pressure POSTPROCEDURE MANAGEMENT: Medical treatment
[2022-01-31] MEDS ORDERED: SODIUM CHLORIDE 0.9% 1,000 ML IV SCH (08:00)
--- NOTE | 2022-01-31 09:02 | P.DS ---
Providers Date of admission: 01/28/22 05:25 Attending physician: Rios Arnold Consults: 01/28/22 05:23 Consult Physician Urgent Consulting Provider: [facility] Consult Reason/Comments: acute chest pain Do you want consulting provider notified?: Yes Primary care physician: Rios Arnold Hospital Course: This discharge summary 66-year-old white female essentially admitted for angina. The patient ended up having stress echo which was inconclusive and ended up having cardiac catheterization which was nominal. Patient will be discharged in stable condition to follow-up with me in about a week Patient Condition at Discharge: Stable Plan - Discharge Summary New Discharge Prescriptions: Continue Vitamin B Complex 1 cap PO HS@2100 Multivit-Min/FA/Lycopen/Lutein [Centrum Silver Tablet] 1 tab PO HS@2100 lisinopriL 40 mg PO DAILY@1700 Levothyroxine Sodium [Euthyrox] 75 mcg PO DAILY@1700 Cholecalciferol [Vitamin D3 (25 Mcg = 1000 Iu)] 50 mcg PO HS@2100 Discharge Medication List Vitamin B Complex 1 cap PO HS@2100 09/26/17 [History] Levothyroxine Sodium [Euthyrox] 75 mcg PO DAILY@1700 08/12/20 [History] Multivit-Min/FA/Lycopen/Lutein [Centrum Silver Tablet] 1 tab PO HS@2100 08/12/20 [History] Cholecalciferol [Vitamin D3 (25 Mcg = 1000 Iu)] 50 mcg PO HS@2100 01/28/22 [History] lisinopriL 40 mg PO DAILY@1700 01/28/22 [History] Follow up Appointment(s)/Referral(s): [facility] [Provider Group] - 2 Weeks Rios Arnold MD [Primary Care Provider] - 1 Week
[2022-01-31 13:09] VITALS: BP 122/82; PULSE 70; RESP 17
== END 2022-01-31 13:22 ==
LOC: EC 03:34 → 6NMEDSUR 05:25
PROVIDERS: ADMIT Family Medicine; ATTEND Family Medicine
DX: R07.89 Other chest pain (principal); I25.10 Atherosclerotic heart disease of native coronary artery without angina pectoris; J45.909 Unspecified asthma, uncomplicated; E03.9 Hypothyroidism, unspecified; I10 Essential (primary) hypertension; E78.5 Hyperlipidemia, unspecified; I37.1 Nonrheumatic pulmonary valve insufficiency; I08.1 Rheumatic disorders of both mitral and tricuspid valves; Z79.890 Hormone replacement therapy; Z79.1 Long term (current) use of non-steroidal anti-inflammatories (NSAID); Z79.82 Long term (current) use of aspirin; Z79.899 Other long term (current) drug therapy; Z88.0 Allergy status to penicillin; Z90.710 Acquired absence of both cervix and uterus; Z82.3 Family history of stroke; Z87.891 Personal history of nicotine dependence
CPT/HCPCS: 99285; 36415; 93005; 93306; 93351; 93458; 83880; 80053; 80048; 83690; 83735; 84484; 85025 ×2; 85610; 85730; 71046; G0378 ×4; C1769; C1894; J2250; J2001; J1644; Q9950; Q9967